=== PATIENT | female | born 1980 | race Caucasian/White ===

== ENCOUNTER → 2022-05-29 | Outpatient (CLI) | payer OTHER ==
[~2022-05-29] MED LIST: METF-372; PAROXETINE
[2022-05-29 13:12] LABS: Basophils # (auto) 0 10 ^3/uL (0-0.2); Basophils % (auto) 0.3 % (0.0-2.0); Eosinophils # (auto) 0.1 10 ^3/uL (0-0.8); Hemoglobin 12.9 g/dL (12.2-16.2); Lymphocytes % (auto) 21.4 % (10.0-50.0); Mean Corpuscular Hgb Conc. 33.9 g/dL (32.0-36.0); Mean Corpuscular Volume 82.6 fL (80.0-100.0); Monocytes # (auto) 0.4 10 ^3/uL (0-1.3); Monocytes % (auto) 4.5 % (0.0-12.0); Neutrophils # (auto) 6.8 10 ^3/uL (1.6-8.6); Neutrophils % (auto) 72.8 % (37.0-80.0); Nucleated Red Blood Cells % 0.1 %; Red Blood Cells 4.59 10^6/uL (4.0-5.20); Red Cell Distribution Width 13.6 % (11.8-14.3); White Blood Cell 9.3 10^3/uL (4.4-10.8)
[2022-05-29 13:40] LABS: Alcohol, Urine < 3.0 mg/dL (0-10); Amphetamine Screen, Urine NEGATIVE (NEGATIVE); Barbiturate Scree,Urine NEGATIVE (NEGATIVE); Benzodiazephine Screen, Urine NEGATIVE (NEGATIVE); Cannabinoid Screen, Urine NEGATIVE (NEGATIVE); Cocaine Screen, Urine NEGATIVE (NEGATIVE); Opiate Scree,Urine NEGATIVE (NEGATIVE); Phencyclidine Screen, Urine NEGATIVE (NEGATIVE)
[2022-05-30 07:06] LABS: RPR Non Reactive (Non Reactive); Rubella Antibodies, IgG 1.72 index (Immune >0.99)
== END | disposition home or self-care (01) ==
LOC: LAB 12:27
PROVIDERS: ATTEND Obstetrics & Gynecology Obstetrics
DX: Z34.80 Encounter for supervision of other normal pregnancy, unspecified trimester (principal); N39.0 Urinary tract infection, site not specified; Z31.430 Encounter of female for testing for genetic disease carrier status for procreative management; Z36.0 Encounter for antenatal screening for chromosomal anomalies; Z3A.00 Weeks of gestation of pregnancy not specified
CPT/HCPCS: 36415; 80307; 83036; 84112; 84702; 85025; 86592; 86703; 86762; 86850; 86900; 86901; 87086; 87340

== ENCOUNTER 2024-01-03 14:52 | Emergency (ER) | payer MEDICAID, OTHER ==
[~2024-01-03] VITALS: Ht 167.6 cm; Wt 120.5 kg
[2024-01-03 16:55] VITALS: BP 120/40; PULSE 92; RESP 16; TEMP 98.3; O2SAT 95
[2024-01-03] MEDS: KETOROLAC TROMETH 60MG/2ML VIAL IM ONE (17:10)
[2024-01-03] MEDS ORDERED: IBUP-1456 PO (17:20)
[2024-01-03] MEDS ORDERED: METH-1182 PO (17:20)
== END 2024-01-03 17:36 | disposition home or self-care (01) ==
LOC: ER 14:52
DX: S16.1XXA Strain of muscle, fascia and tendon at neck level, initial encounter (principal); R51.9 Headache, unspecified; E11.9 Type 2 diabetes mellitus without complications; Z88.0 Allergy status to penicillin; X50.1XXA Overexertion from prolonged static or awkward postures, initial encounter; Y93.89 Activity, other specified; Y92.89 Other specified places as the place of occurrence of the external cause; Y99.8 Other external cause status
CPT/HCPCS: 70450; 96372; 99285; J1885

== ENCOUNTER 2024-06-16 16:34 | Inpatient (IN) | payer MEDICAID ==
[~2024-06-16] VITALS: Ht 167.6 cm; Wt 115.9 kg
[~2024-06-16 16:34] MED LIST changes: +IBUP-1456 PO; +METH-1182 PO
--- NOTE | 2024-06-16 18:39 | DVH ---
Left lower extremity venous duplex Clinical History: SWELLING AND PAIN Comparison: None Technique: Duplex Doppler evaluation of the deep venous system of the left lower extremity from the common femor al vein to the popliteal vein including color Doppler and spectral/pulsed waveform analysis was perfo rmed. Findings: Duplex Doppler evaluation of the deep venous system of the left lower extremity from the common femor al vein to the popliteal vein including color Doppler and spectral/pulsed waveform analysis was perfo rmed. The common femoral vein demonstrates appropriate compressibility and waveform variability. There is compressibility/patency of the great saphenous vein at the proximal thigh. The femoral vein demonstrates appropriate compressibility and waveform variability. The deep femoral vein demonstrates appropriate compressibility and waveform variability. The popliteal vein demonstrates appropriate compressibility and waveform variability. There is normal compressibility at the tibioperoneal trunk. Impression: No left femoropopliteal venous thrombosis. If clinical concern/symptoms persist or worsen, short-interval follow-up study is suggested.
[2024-06-16 19:12] LABS: Basophils # (auto) 0.1 10 ^3/uL (0-0.2); Basophils % (auto) 0.6 % (0.0-2.0); Eosinophils # (auto) 0.3 10 ^3/uL (0-0.8); Eosinophils % (auto) 1.9 % (0.0-7.0); Hematocrit 37.4 % (36.0-46.0); Hemoglobin 12.7 g/dL (12.2-16.2); Lymphocytes # (auto) 1.7 10 ^3/uL (0.4-5.4); Lymphocytes % (auto) 10.7 % (10.0-50.0); Mean Corpuscular Hemoglobin 28.4 pg (28.0-32.0); Mean Corpuscular Hgb Conc. 33.9 g/dL (32.0-36.0); Mean Corpuscular Volume 83.9 fL (80.0-100.0); Monocytes # (auto) 0.8 10 ^3/uL (0-1.3); Monocytes % (auto) 4.9 % (0.0-12.0); Neutrophils # (auto) 12.8 10 ^3/uL (1.6-8.6); Neutrophils % (auto) 81.9 % (37.0-80.0); Platelet Count (auto) 297 10^3/uL (140-450); Red Blood Cells 4.45 10^6/uL (4.0-5.20); Red Cell Distribution Width 13.3 % (11.8-14.3); White Blood Cell 15.6 10^3/uL (4.4-10.8)
[2024-06-16 19:26] LABS: Alanine Aminotransferase 25 U/L (7-40); Albumin 4.6 g/dL (3.2-4.8); Alkaline Phosphatase 94 U/L (46-116); Anion Gap 8 (5-15); BUN/Creatinine Ratio 8.5 (10.0-20.0); Bilirubin, Total 0.9 mg/dL (0.2-1.0); Calcium 10.1 mg/dL (8.7-10.4); Carbon Dioxide 28 mmol/L (20-31); Chloride 102 mmol/L (98-107); Sodium 138 mmol/L (136-145)
[2024-06-16 19:31] LABS: Aspartate Aminotransferase 11 U/L (13-40); Blood Urea Nitrogen 6 mg/dL (9-23); Glucose 241 mg/dL (74-106); Potassium 3.3 mmol/L (3.5-5.1)
[2024-06-16 19:49] LABS: Erythrocyte Sedimentation Rate 47 mm/hr (0-20)
--- NOTE | 2024-06-16 20:02 | ED.PDOC ---
Musculoskeletal HPI Comments radha HPI: Poor Historian. 44-year-old female presents to emergency department for evaluation of left calf ankle foot pain and swelling. Denies any fall or trauma. Patient is diabetic. She feels some swelling and some minimal redness in there and tenderness at the plantar aspect of the left foot. Patient is neurovascularly intact in the affected extremity. Denies any other associated symptoms. Vitals: temp: 98.8 F heart rate: 102 RR: 16 BP: 146/67 02 sat: 98 PAST MEDICAL HISTORY: diabetes past surgical history: denies medications: unknown allergies: Pediazole, penicillins REVIEW OF SYSTEMS: CONSTITUTIONAL: Denies acute: fever, diaphoresis, chills, generalized weakness. HEAD: Denies acute: headache, photophobia Eyes: Denies acute: Double vision, vision loss, eye pain, eye discharge. EARS: Denies acute: tinnitus, hearing loss, ear discharge, ear pain, THROAT: Denies acute: sore throat, swelling, difficulty swallowing , pain with swallowing, change in voice. NECK: Denies acute: neck pain, neck swelling, stiff neck. HEART: Denies acute : chest pain, palpitations, LUNGS: Denies acute: SOB, wheezing, cough, hemoptysis ABDOMEN: Denies acute: abdominal pain, Nausea, Vomiting, diarrhea, melena , hematemesis, hematochezia SKIN: Denies acute: rash, redness, lesions, itchiness. EXTREMITIES: Denies acute: calf pain, numbness, tingling, weakness Denies acute: Low back pain. Neuro: Denies acute: focal neurological deficit, motor or sensory focal neurological deficit, tremors, seizure like activity, confusion, dizziness, change in mental status, loss of bowel or bladder function, cauda equina like symptoms. : Denies acute: dysuria, hematuria, flank pain, increase in urinary frequency. PSYCH: Denies acute: hallucination, suicidal ideation, homicidal ideation. FEMALE: Denies acute: abnormal vaginal bleeding, foul odor, unusual discharge. PHYSICAL EXAM: General: no acute distress, awake and alert. Head: normocephalic, atraumatic. Neck: supple, trachea is midline, no swelling. Throat: Normal phonation. Eyes:, no erythema, no purulent discharge, no proptosis, no icterus. Heart: regular rate, regular rhythm, no significant murmur appreciated. Lungs: no apparent respiratory distress, Able to speak in full sentences. No wheezing, no rhonchi, no crackles. No stridors Clear to auscultation bilaterally. Abdomen: non tender to palpation, non distended, soft, no guarding, no rebound, + bowel sounds. Obese Neuro: Awake, Alert, oriented to name, self, situation, follows commands GCS=15. Speech is normal. Skin: no petechia, no purpura, no cyanosis, non-pale, not jaundice. Left Lower extremities: -1/4- Pitting edema no deformity, no focal swelling, mild calf tenderness Noted erythema and puffiness of the left foot. No actual tenderness to palpation on the foot. Pedal pulses palpable. Patient is neurovascularly intact in the affected extremity. Makes eye contact. moves all four extremities. Face: no apparent facial droop. Chief Complaint: Lower Extremity Time Seen by MD: 19:57 Primary Care Provider: PALOMO Mcdonnell Notes: Medications, Allergies Allergies: Coded Allergies: Penicillins (Verified Allergy, 08/14/09) Uncoded Allergies: PEDIASOL (Allergy, 08/14/09) Home Meds Active Scripts Methocarbamol (Methocarbamol) 750 Mg Tab, 750 MG PO BID, #20 TAB Prov:ARIELLA ALEMAN 01/03/24 Ibuprofen (Ibuprofen) 800 Mg Tab, 1 TAB PO TID, #30 TAB Prov:ARIELLA ALEMAN 01/03/24 Reported Medications [Paroxetine] No Conflict Check 11/01/12 [Metformin [id number] Mg] (Metformin Hcl) 1000 MG TAB No Conflict Check, MG 11/01/12 Information Source: Patient Mode of Arrival: Wheelchair Past Medical History PAST MEDICAL HISTORY: DM Surgical History: Denies all surgeries [employer] History: No Pertinent [employer] History Family History Family History: No family hx of DM, No family hx of HTN Social History Smoker: Non-Smoker Alcohol: Denies ETOH Use Drugs: Denies Drug Use Lives In: Home Was a procedure done? Was a procedure done?: No X-Ray, Labs, Meds, VS Vital Signs Date Time Temp Pulse Resp B/P (MAP) Pulse Ox O2 Delivery O2 Flow Rate FiO2 06/16/24 17:00 98.8 102 16 146/67 (93) 98 Lab Test 06/16/24 18:56 06/16/24 17:36 Range/Units White Blood Count 15.6 H 4.4-10.8 10^3/uL Red Blood Count 4.45 4.0-5.20 10^6/uL Hemoglobin 12.7 12.2-16.2 g/dL Hematocrit 37.4 36.0-46.0 % Mean Corpuscular Volume 83.9 80.0-100.0 fL Mean Corpuscular Hemoglobin 28.4 28.0-32.0 pg Mean Corpuscular Hemoglobin Concent 33.9 32.0-36.0 g/dL Red Cell Distribution Width 13.3 11.8-14.3 % Platelet Count 297 140-450 10^3/uL Mean Platelet Volume 8.5 6.9-10.8 fL Neutrophils (%) (Auto) 81.9 H 37.0-80.0 % Lymphocytes (%) (Auto) 10.7 10.0-50.0 % Monocytes (%) (Auto) 4.9 0.0-12.0 % Eosinophils (%) (Auto) 1.9 0.0-7.0 % Basophils (%) (Auto) 0.6 0.0-2.0 % Neutrophils # (Auto) 12.8 H 1.6-8.6 10 ^3/uL Lymphocytes # (Auto) 1.7 0.4-5.4 10 ^3/uL Monocytes # (Auto) 0.8 0-1.3 10 ^3/uL Eosinophils # (Auto) 0.3 0-0.8 10 ^3/uL Basophils # (Auto) 0.1 0-0.2 10 ^3/uL Nucleated Red Blood Cells 0.0 % Erythrocyte Sedimentation Rate 47 H 0-20 mm/hr Sodium Level 138 136-145 mmol/L Potassium Level 3.3 L 3.5-5.1 mmol/L Chloride Level 102 98-107 mmol/L Carbon Dioxide Level 28 20-31 mmol/L Anion Gap 8 5-15 Blood Urea Nitrogen 6 L 9-23 mg/dL Creatinine 0.71 0.550-1.02 mg/dL Glomerular Filtration Rate Calc 106 >90 mL/min BUN/Creatinine Ratio 8.5 L 10.0-20.0 Serum Glucose 241 H 74-106 mg/dL Calcium Level 10.1 8.7-10.4 mg/dL Total Bilirubin 0.9 0.2-1.0 mg/dL Aspartate Amino Transferase (AST) 11 L 13-40 U/L Alanine Aminotransferase (ALT) 25 7-40 U/L Alkaline Phosphatase 94 46-116 U/L Total Protein 8.0 5.7-8.2 g/dL Albumin 4.6 3.2-4.8 g/dL POC Glucose 227 H 70-106 mg/dl [place] [id number] Ph: [phone] DIAGNOSTIC IMAGING Diagnostic Imaging Report : [id number] Signed PATIENT: BRYAN ANTHONY BACCT: [id number] UNIT: [id number] : 1980 LOC: ER ROOM / BED: / AGE / SEX: 44 / F ADM STATUS: REG ER SERVICE 173 ORDERING PHYSICIAN: DOMONIQUE WASHINGTON MD PROCEDURE(s): LLDVT - LT Lower DVT REASON: SWELLING AND PAIN ORDER NUMBER(s): [id number], ACCESSION NUMBER(s): [id number] Left lower extremity venous duplex Clinical History: SWELLING AND PAIN Comparison: None Technique: Duplex Doppler evaluation of the deep venous system of the left lower extremity from the common femoral vein to the popliteal vein including color Doppler and spectral/pulsed waveform analysis was performed. Findings: Duplex Doppler evaluation of the deep venous system of the left lower extremity from the common femoral vein to the popliteal vein including color Doppler and spectral/pulsed waveform analysis was performed. The common femoral vein demonstrates appropriate compressibility and waveform variability. There is compressibility/patency of the great saphenous vein at the proximal thigh. The femoral vein demonstrates appropriate compressibility and waveform v ariability. The deep femoral vein demonstrates appropriate compressibility and waveform variability. The popliteal vein demonstrates appropriate compressibility and waveform variability. There is normal compressibility at the tibioperoneal trunk. Impression: No left femoropopliteal venous thrombosis. If clinical concern/symptoms persist or worsen, short-interval follow-up study is suggested. ATED BY: ANNELIESE MCCLELLAN DO DICTATED DATE/TIME: 06/16/241835 SIGNED BY: ANNELIESE MCCLELLAN DO SIGNED DATE/TIME: 06/16/241835 CC: Patient Education/Counseling: Diagnosis, Treatment Family Education/Counseling: No Family Present Comments MDM: Patient presented with the above HPI.----- LLE pain -workup was initiated. patient was found with the above mentioned diagnosis. The following tests / medications were ordered: LT lower DVT, CBC, CMP, ESR, clindamycin, blood culture Patient ED course and VS have been stabilized. Patient has been reassessed in the ED and remained in a stable condition. Patient has been observed in the ED adequate length of time to insure improvement/stability. Escalation of care considered: Consideration of escalation to observation or admission. patient was ADMITTED to the medicine team for further evaluation and treatment of their presentation. All the reports of any imaging studies that were ordered by myself were reviewed by myself. Departure 1 Departure Time of Disposition: 21:04 Impression: Primary Impression: Left leg cellulitis Disposition: ADMITTED INPATIENT Admit to: [facility] Condition: Guarded Discharged With: Self Critical Care Note Critical Care Time?: No I personally scribed for DIPTI LINTON DO ([email or web address]) on 06/16/24 at 20:01. Electronically submitted by Sweta Pastrana ([email or web address]). I personally scribed for DIPTI LINTON DO ([email or web address]) on 06/16/24 at 20:28. Electronically submitted by Sweta Pastrana ([email or web address]). I personally scribed for DIPTI LINTON DO ([email or web address]) on 06/16/24 at 21:40. Electronically submitted by Sweta SOLORZANOGlider). DIPTI LINTON DO Jun 16, 2024 20:01
[2024-06-16] MEDS ORDERED: NITROGLYCERIN 0.4 MG SL TAB SL PRN (21:45)
[2024-06-16] MEDS ORDERED: MORPHINE SULFATE INJ 2 MG/ml SYRG IV PRN (21:45)
--- NOTE | 2024-06-16 21:54 | DVH ---
EXAMINATIONS: 2 views of the left foot CLINICAL HISTORY: ankle swelling and /osteomyelitis COMPARISON: None Findings and impression: Oblique view not provided. As visualized, no grossly displaced fractures, dislocations or bony destructive changes are evident o n the provided views. Distal tibial rené and interlocking screw fixation partially imaged. If there is persistent concern for osteomyelitis, MRI may be considered to further evaluate.
[2024-06-16] MEDS: CLINDAMYCIN 300MG IV 50 ML IV SCH (22:00)
[2024-06-17] MEDS: POTASSIUM CHL 20 Meq TABLET PO ONE (01:32)
[2024-06-17] MEDS: FAMOTIDINE 20 MG TAB PO ONE (01:32)
[2024-06-17] MEDS: ENOXAPARIN SOD 40 MG/0.4 ML SYRINGE SC ONE (01:32)
[2024-06-17] MEDS: CLINDAMYCIN 900MG IV 50 ML IV ONE (01:46)
[2024-06-17 05:02] VITALS: BP 149/65; PULSE 95; RESP 18; TEMP 98.3; O2SAT 96
[2024-06-17] MEDS ORDERED: DEXTROSE (50%) 50ML SYRG IV PRN (05:45)
--- NOTE | 2024-06-17 05:53 | DVHHPRES ---
History of Present Illness Resident Creating Document: ELIZABET MIRAMONTES RESIDENT History of Present Illness Patient is a 44-year-old female with past medical history of diabetes who came to the hospital with a chief complaint of left lower extremity worsening redness and pain. As per patient she started having redness in left lower extremity mild swelling prompted visit to emergency department. Patient has been feeling chills past past few days and mild cough however patient denied any other complaints including chest pain, shortness of breath, abdominal pain, dysuria, any other symptoms. At the time of evaluation, patient denied any other symptoms, lower extremity vascular is intake given prominent pedal pulse present in bilateral lower feet, ultrasound ruled out bilateral DVT as well. Patient will be admitted to hospital for the treatment of lower extremity cellulitis. Past Medical History Diabetes mellitus type 2 Past Surgical History Left knee surgery Family History: None Smoke: No ALCOHOL: none Drugs: None Lives: with Family Review of Systems Review of Systems Complaining of mild chills, left lower extremity swelling and redness. Constitutional: No: Fever, Chills, Sweats, Weakness, Malaise, Other Eyes: No: Pain, Vision change, Conjunctivae inflammation, Eyelid inflammation, Other, Redness ENT: No: Ear pain, Ear discharge, Nose pain, Nose discharge, Nose congestion, Mouth pain, Mouth swelling, Throat pain, Throat swelling, Other Respiratory: No: Cough, Dry, Shortness of breath, SOB with excertion, Wheezing, Hemoptysis, Pleuritic Pain, Sputum, Wheezing, Other Cardiovascular: No: Chest Pain, Palpitations, Orthopnea, Paroxysmal Noc. Dyspnea, Edema, Lt Headedness, Other Gastrointestinal: No: Nausea, Vomiting, Abdominal Pain, Diarrhea, Constipation, Melena, Hematochezia, Other Genitourinary: No Dysuria, No Frequency, No Incontinence, No Hematuria, No Retention, No Other Musculoskeletal: No: other, neck pain, shoulder pain, arm pain, back pain, hand pain, leg pain, foot pain Skin: No: Rash, Lesions, Jaundice, Bruising, Other Neurological: No: Weakness, Numbness, Incoordination, Change in speech, Confusion, Seizures, Other Allergies: Coded Allergies: Penicillins (Verified Allergy, 08/14/09) Uncoded Allergies: PEDIASOL (Allergy, 08/14/09) Medications Current Medications Medications Dose Ordered Sig/Jerome Route Start Time Stop Time Status Last Admin Dose Admin Nitroglycerin 0.4 mg Q5MINP PRN SL 06/16/24 21:45 Morphine Sulfate 2 mg Q30M PRN IV 06/16/24 21:45 Clindamycin Phosphate 50 ml @ 50 mls/hr Q8HR IV 06/16/24 22:00 Famotidine 20 mg Q12HR PO 06/17/24 10:00 Enoxaparin Sodium 40 mg DAILY@0100 SC 06/18/24 01:00 Exam Vital Signs Vital Signs Date Time Temp Pulse Resp B/P (MAP) Pulse Ox O2 Delivery O2 Flow Rate FiO2 06/17/24 05:02 95 18 96 Room Air* 0 21 06/17/24 05:02 98.3 149/65 (93) 98.3 General Appearance: Alert, Oriented X3 HEENT: Atraumatic, PERRLA, EOMI Respiratory: Clear to auscultation, Normal air movement Cardiovascular: Regular rate, Normal S1, Normal S2 Abdominal: Normal bowel sounds, Soft, No tenderness Extremities: No clubbing, No cyanosis, No edema, Normal pulses, Other (Mild redness over plantar surface of left foot, lateral surface of left foot as well) Skin: No rashes, No breakdown Neuro: Normal gait, Normal speech, Strength at 5/5 X4 ext, Normal tone Psych/Mental Status: Mental status NL, Mood NL Labs/Xrays Labs Test 06/16/24 18:56 06/16/24 17:36 Range/Units White Blood Count 15.6 H 4.4-10.8 10^3/uL Red Blood Count 4.45 4.0-5.20 10^6/uL Hemoglobin 12.7 12.2-16.2 g/dL Hematocrit 37.4 36.0-46.0 % Mean Corpuscular Volume 83.9 80.0-100.0 fL Mean Corpuscular Hemoglobin 28.4 28.0-32.0 pg Mean Corpuscular Hemoglobin Concent 33.9 32.0-36.0 g/dL Red Cell Distribution Width 13.3 11.8-14.3 % Platelet Count 297 140-450 10^3/uL Mean Platelet Volume 8.5 6.9-10.8 fL Neutrophils (%) (Auto) 81.9 H 37.0-80.0 % Lymphocytes (%) (Auto) 10.7 10.0-50.0 % Monocytes (%) (Auto) 4.9 0.0-12.0 % Eosinophils (%) (Auto) 1.9 0.0-7.0 % Basophils (%) (Auto) 0.6 0.0-2.0 % Neutrophils # (Auto) 12.8 H 1.6-8.6 10 ^3/uL Lymphocytes # (Auto) 1.7 0.4-5.4 10 ^3/uL Monocytes # (Auto) 0.8 0-1.3 10 ^3/uL Eosinophils # (Auto) 0.3 0-0.8 10 ^3/uL Basophils # (Auto) 0.1 0-0.2 10 ^3/uL Nucleated Red Blood Cells 0.0 % Erythrocyte Sedimentation Rate 47 H 0-20 mm/hr Sodium Level 138 136-145 mmol/L Potassium Level 3.3 L 3.5-5.1 mmol/L Chloride Level 102 98-107 mmol/L Carbon Dioxide Level 28 20-31 mmol/L Anion Gap 8 5-15 Blood Urea Nitrogen 6 L 9-23 mg/dL Creatinine 0.71 0.550-1.02 mg/dL Glomerular Filtration Rate Calc 106 >90 mL/min BUN/Creatinine Ratio 8.5 L 10.0-20.0 Serum Glucose 241 H 74-106 mg/dL Hemoglobin A1c 10.6 H <5.7 % A1C Calcium Level 10.1 8.7-10.4 mg/dL Total Bilirubin 0.9 0.2-1.0 mg/dL Aspartate Amino Transferase (AST) 11 L 13-40 U/L Alanine Aminotransferase (ALT) 25 7-40 U/L Alkaline Phosphatase 94 46-116 U/L B-Type Natriuretic Peptide 33.10 0-100 pg/mL Total Protein 8.0 5.7-8.2 g/dL Albumin 4.6 3.2-4.8 g/dL Thyroid Stimulating Hormone (TSH) 0.72 0.55-4.78 uIU/mL Beta HCG, Quantitative 3.7 1.5-4.2 mIU/mL POC Glucose 227 H 70-106 mg/dl Assessment/Plan Assessment/Plan Left lower extremity cellulitis Diabetes mellitus type 2 Morbid obesity History of knee surgery Plan/recommendation -IV antibiotic with clindamycin for cellulitis -prominent presence of bilateral pedal pulse, ruled out bilateral lower extremity DVT -x-ray of foot did not show any signs of osteomyelitis less likely given contain cellulitis, no signs of abscess visibly present. -insulin sliding scale for diabetes mellitus, diabetic education, currently on Ozempic, not on any other antidiabetic medication -PUD prophylaxis with famotidine -DVT prophylaxis with Lovenox Goals of care, discussed greater than 24 minutes. Full code status. Plan discussed with Dr. Zepeda Plan discussed with: Patient, Daughter (RN) My Orders Orders - ELIZABET MIRAMONTES Procedure Category Date Status Time Admit ADMIT 06/16/24 Transmitted 21:32 Nitroglycerin PHA 06/16/24 In Process Sublingual (Ntrostat 21:45 Morphine Sulfate PHA 06/16/24 In Process Injection 21:45 Stat Ekg For Chest SIMÓN 06/16/24 In Process Pain 21:32 L Foot 2 View Xray XY 06/16/24 Resulted 21:37 Clindamycin 300mg Iv PHA 06/16/24 In Process (Cleocin Iv) 22:00 Drug Screen LAB 06/16/24 Logged 21:38 Urinalysis LAB 06/16/24 Logged 21:38 Famotidine Tablet PHA 06/17/24 In Process (Pepcid Tablet) 10:00 Enoxaparin Sodium PHA 06/18/24 In Process (Lovenox) 01:00 Date of Service: Jun 16, 2024 Billing Provider: SUZANNA ZEPEDA MD Common Visit Codes: 26435-[id number] INP/OBS CARE (HIGH) ELIZABET MIRAMONTES Jun 17, 2024 05:53 SUZANNA ZEPEDA MD Jun 17, 2024 17:48
[2024-06-17] MEDS: ACCU-CHEK COMFORT CURVE STRIP VI SCH (06:23)
[2024-06-17] MEDS: InsuLIN REG 1unit/0.01ml Soln (100units/ml) SC SCH (06:28)
[2024-06-17 07:28] LABS: Urine Bacteria None Seen /hpf (None Seen)
[2024-06-17 08:00] LABS: Urine Blood Negative /uL (Negative); Urine Clarity Clear (Clear); Urine Color Light-Yellow (Yellow); Urine Protein, UAD Negative (Negative); Urine Specific Gravity 1.008 (1.001-1.035); Urine Squamous Epithelial Cell FEW /hpf (<5); Urine Urobilinogen Normal (Negative); Urine WBC 1 /hpf (0 - 5); Urine pH 6.5 (5.0-9.0)
[2024-06-17 08:12] LABS: Amphetamine Screen, Urine Neg (NEGATIVE); Barbiturate Scree,Urine Neg (NEGATIVE); Benzodiazephine Screen, Urine Neg (NEGATIVE); Cocaine Screen, Urine Neg (NEGATIVE); Opiate Scree,Urine Neg (NEGATIVE); Phencyclidine Screen, Urine Neg (NEGATIVE)
[2024-06-17 08:13] LABS: Cannabinoid Screen, Urine Neg (NEGATIVE)
[2024-06-17] MEDS: FAMOTIDINE 20 MG TAB PO SCH (10:09)
[2024-06-17] MEDS ORDERED: AUG875T PO (11:46)
--- NOTE | 2024-06-17 12:01 | DVHDSRES ---
Discharge Summary Date of Admission Resident Creating Document: ELIZABET MIRAMONTES RESIDENT Jun 16, 2024 at 21:32 Date of Discharge: Jun 17, 2024 Admitting Diagnosis Left foot cellulitis Labs/Diagnostic Data: Laboratory Results Test 06/17/24 11:06 06/17/24 07:00 06/16/24 18:56 POC Glucose 196 mg/dl (70-106) Urine Color Light-yellow (Yellow) Urine Clarity Clear (Clear) Urine pH 6.5 (5.0-9.0) Urine Specific [place] 1.008 (1.001-1.035) Urine Protein Negative (Negative) Urine Ketones Negative (Negative) Urine Blood Negative /uL (Negative) Urine Nitrite Negative (Negative) Urine Bilirubin Negative (Negative) Urine Urobilinogen Normal mg/dL (Negative) Urine Leukocyte Esterase Negative /uL (Negative) Urine RBC None seen /hpf (0 - 4) Urine WBC 1 /hpf (0 - 5) Urine Squamous Epithelial Cells Few /hpf (<5) Urine Bacteria None seen /hpf (None Seen) Urine Glucose 4+ mg/dL (Normal) Urine Opiates Screen Neg (NEGATIVE) Urine Fentanyl Screen Neg (NEGATIVE) Urine Barbiturates Screen Neg (NEGATIVE) Urine Phencyclidine Screen Neg (NEGATIVE) Urine Amphetamines Screen Neg (NEGATIVE) Urine Benzodiazepines Screen Neg (NEGATIVE) Urine Cocaine Screen Neg (NEGATIVE) Urine Cannabinoids Screen Neg (NEGATIVE) White Blood Count 15.6 10^3/uL (4.4-10.8) Red Blood Count 4.45 10^6/uL (4.0-5.20) Hemoglobin 12.7 g/dL (12.2-16.2) Hematocrit 37.4 % (36.0-46.0) Mean Corpuscular Volume 83.9 fL (80.0-100.0) Mean Corpuscular Hemoglobin 28.4 pg (28.0-32.0) Mean Corpuscular Hemoglobin Concent 33.9 g/dL (32.0-36.0) Red Cell Distribution Width 13.3 % (11.8-14.3) Platelet Count 297 10^3/uL (140-450) Mean Platelet Volume 8.5 fL (6.9-10.8) Neutrophils (%) (Auto) 81.9 % (37.0-80.0) Lymphocytes (%) (Auto) 10.7 % (10.0-50.0) Monocytes (%) (Auto) 4.9 % (0.0-12.0) Eosinophils (%) (Auto) 1.9 % (0.0-7.0) Basophils (%) (Auto) 0.6 % (0.0-2.0) Neutrophils # (Auto) 12.8 10 ^3/uL (1.6-8.6) Lymphocytes # (Auto) 1.7 10 ^3/uL (0.4-5.4) Monocytes # (Auto) 0.8 10 ^3/uL (0-1.3) Eosinophils # (Auto) 0.3 10 ^3/uL (0-0.8) Basophils # (Auto) 0.1 10 ^3/uL (0-0.2) Nucleated Red Blood Cells 0.0 % Erythrocyte Sedimentation Rate 47 mm/hr (0-20) Sodium Level 138 mmol/L (136-145) Potassium Level 3.3 mmol/L (3.5-5.1) Chloride Level 102 mmol/L (98-107) Carbon Dioxide Level 28 mmol/L (20-31) Anion Gap 8 (5-15) Blood Urea Nitrogen 6 mg/dL (9-23) Creatinine 0.71 mg/dL (0.550-1.02) Glomerular Filtration Rate Calc 106 mL/min (>90) BUN/Creatinine Ratio 8.5 (10.0-20.0) Serum Glucose 241 mg/dL (74-106) Hemoglobin A1c 10.6 % A1C (<5.7) Calcium Level 10.1 mg/dL (8.7-10.4) Total Bilirubin 0.9 mg/dL (0.2-1.0) Aspartate Amino Transferase (AST) 11 U/L (13-40) Alanine Aminotransferase (ALT) 25 U/L (7-40) Alkaline Phosphatase 94 U/L (46-116) B-Type Natriuretic Peptide 33.10 pg/mL (0-100) Total Protein 8.0 g/dL (5.7-8.2) Albumin 4.6 g/dL (3.2-4.8) Thyroid Stimulating Hormone (TSH) 0.72 uIU/mL (0.55-4.78) Beta HCG, Quantitative 3.7 mIU/mL (1.5-4.2) Other Laboratory Tests 06/16/24 18:56 Brief Hx & Hospital Course: A 44-year-old female with a history of diabetes presented to the hospital with worsening redness and pain in her left lower extremity. She reported mild swelling and chills over the past few days, along with a mild cough, but denied other symptoms such as chest pain, shortness of breath, abdominal pain, or dysuria. During evaluation, she denied additional symptoms, and vascular assessment showed intact lower extremity circulation with prominent pedal pulses bilaterally. An ultrasound ruled out bilateral DVT. She will be admitted for the treatment of lower extremity cellulitis. Her past medical history includes type 2 diabetes, and her surgical history includes left knee surgery. Hospital course: On physical exam, left foot was swollen and red from 3 lateral toes up to the ankle, per patient, the redness and swelling has increased 3 times within last 24 hours which was associated with severe pain and was limiting his ambulation. Chest x-ray showed, no grossly displaced fractures, dislocations or bony destructive changes are evident. DVT was ruled out with a Doppler ultrasound of lower limb. The patient was given empiric antibiotic of injection clindamyci. Hb A1c was found at 10.6, during hospitalization glucose was controlled with the aggressive insulin sliding scale. The patient was consulted regarding optimal glucose control and outpatient basis follow up. On 06/17, the patient was feeling better since admission, swelling and redness had decreased, patient was clinically and hemodynamically stable, on left leg examination, there was no fluctuation or pus discharge. discharge plan discussed with the patient and the patient was discharged. Discharge plan: Follow up with the PCP within 1 week of the discharge. follow up with the discharge Clinic within 1 week after discharge. Tablet Augmentin b.i.d. for 10 days. Continue home medicine. Operations or Procedures [place] [address] Ph: [phone] DIAGNOSTIC IMAGING Diagnostic Imaging Report : [id number] Signed PATIENT: BRYAN ANTHONY BACCT: [id number] UNIT: [id number] : 1980 LOC: OVERFLOW ROOM / BED: [address] [place] [address] / AGE / SEX: 44 / F ADM STATUS: ADM IN SERVICE 8439 ORDERING PHYSICIAN: ELIZABET MIRAMONTES RESIDENT PROCEDURE(s): LFOT2 - L FOOT 2 VIEW XRAY REASON: ankle swelling and /osteomyelitis ORDER NUMBER(s): [id number], ACCESSION NUMBER(s): [id number] EXAMINATIONS: 2 views of the left foot CLINICAL HISTORY: ankle swelling and /osteomyelitis COMPARISON: None Findings and impression: Oblique view not provided. As visualized, no grossly displaced fractures, dislocations or bony destructive changes are evident on the provided views. Distal tibial rené and interlocking screw fixation partially imaged. If there is persistent concern for osteomyelitis, MRI may be considered to further evaluate. ATED BY: LEO ROTHMAN MD DICTATED DATE/TIME: 06/16/242150 SIGNED BY: LEO ROTHMAN MD SIGNED DATE/TIME: 06/16/242150 CC: [place] [address] Ph: [phone] DIAGNOSTIC IMAGING Diagnostic Imaging Report : [id number] Signed PATIENT: BRYAN ANTHONY BACCT: [id number] UNIT: [id number] : 1980 LOC: ER ROOM / BED: / AGE / SEX: 44 / F ADM STATUS: REG ER SERVICE 36 ORDERING PHYSICIAN: DOMONIQUE WASHINGTON MD PROCEDURE(s): LLDVT - LT Lower DVT REASON: SWELLING AND PAIN ORDER NUMBER(s): [id number], ACCESSION NUMBER(s): [id number] Left lower extremity venous duplex Clinical History: SWELLING AND PAIN Comparison: None Technique: Duplex Doppler evaluation of the deep venous system of the left lower extremity from the common femoral vein to the popliteal vein including color Doppler and spectral/pulsed waveform analysis was performed. Findings: Duplex Doppler evaluation of the deep venous system of the left lower extremity from the common femoral vein to the popliteal vein including color Doppler and spectral/pulsed waveform analysis was performed. The common femoral vein demonstrates appropriate compressibility and waveform variability. There is compressibility/patency of the great saphenous vein at the proximal thigh. The femoral vein demonstrates appropriate compressibility and waveform variability. The deep femoral vein demonstrates appropriate compressibility and waveform variability. The popliteal vein demonstrates appropriate compressibility and waveform variability. There is normal compressibility at the tibioperoneal trunk. Impression: No left femoropopliteal venous thrombosis. If clinical concern/symptoms persist or worsen, short-interval follow-up study is suggested. ATED BY: ANNELIESE MCCLELLAN DO DICTATED DATE/TIME: 06/16/241835 SIGNED BY: ANNELIESE MCCLELLAN DO SIGNED DATE/TIME: 06/16/241835 CC: Condition at Discharge: Good Final Diagnosis/Problems List Left lower extremity cellulitis Diabetes mellitus type 2 Morbid obesity History of knee surgery Discharge Disposition: Home Discharge Instruct/Medications Diet: Consistent carbohydrate Activity: No Restrictions, As Tolerated Follow Up/Referral: Follow up with the PCP within 1 week after discharge. Follow up with the discharge Clinic within 1 week of the discharge Medications: The Augmentin b.i.d. for 10 days Continue home meds Discharge Statement: "Patient was advised to return to the ER or call 911 if any headaches, dizziness, shortness of breath, chest pain, abdominal pain, bleeding, fevers, or worsening of medical condition. Patient was counseled about treatment plan, medications, possible side effects, patientverbalized understanding. All questions were answered to the best of my ability. This discharge took greater then 30 minutes in planning, reviewing documentation, counseling the patient, and discussing with other team members." ASSESSMENT ASSESSMENT Assessment left leg cellulitis Date of Service: Jun 17, 2024 Billing Provider: OLIVA BONDS MD Common Visit Codes: 05607-AAY/OBS DISCH DAY >30min EPI HARVEY RESDIENT Jun 17, 2024 12:01 OLIVA BONDS MD Jun 21, 2024 21:42
[2024-06-17 12:22] VITALS: TEMP 36.8
[2024-06-17] MEDS ORDERED: DOX100T PO (13:04)
[2024-06-17] MEDS ORDERED: InsuLIN REG 1unit/0.01ml Soln (100units/ml) SC SCH (22:00)
[2024-06-18] MEDS ORDERED: ENOXAPARIN SOD 40 MG/0.4 ML SYRINGE SC SCH (01:00)
== END 2024-06-17 13:35 | disposition home or self-care (01) | DRG 383 ==
LOC: ER 16:34 → OVERFLOW 21:32
PROVIDERS: ADMIT Student in an Organized Health Care Education/Training Program; ATTEND Student in an Organized Health Care Education/Training Program
DX: L03.116 Cellulitis of left lower limb (principal); E11.9 Type 2 diabetes mellitus without complications; E66.01 Morbid (severe) obesity due to excess calories; Z88.0 Allergy status to penicillin; Z68.41 Body mass index [BMI] 40.0-44.9, adult
CPT/HCPCS: 36415; 73620; 80053; 80307; 81001; 82962; 83036; 83880; 84443; 84702; 85025; 85652; 87040; 93971; G0378; J1815; J3490

== ENCOUNTER 2024-06-26 00:26 | Inpatient (IN) | payer MEDICAID ==
[~2024-06-26] VITALS: Ht 167.6 cm; Wt 110.3 kg
[~2024-06-26 00:26] MED LIST changes: +DOX100T PO
[2024-06-26] MEDS ORDERED: VANCOMYCIN PER PHARMACY 0 MG IV SCH ×2 (01:00→02:15)
[2024-06-26 01:33] LABS: Basophils # (auto) 0.1 10 ^3/uL (0-0.2); Eosinophils # (auto) 0.4 10 ^3/uL (0-0.8); Hemoglobin 11.5 g/dL (12.2-16.2); Lymphocytes # (auto) 1.4 10 ^3/uL (0.4-5.4); Mean Corpuscular Hemoglobin 28.1 pg (28.0-32.0); Mean Corpuscular Hgb Conc. 33.4 g/dL (32.0-36.0)
[2024-06-26 01:35] LABS: Basophils % (auto) 0.7 % (0.0-2.0); Hematocrit 34.6 % (36.0-46.0); Lymphocytes % (auto) 7.6 % (10.0-50.0); Mean Corpuscular Volume 84.1 fL (80.0-100.0); Monocytes % (auto) 5.2 % (0.0-12.0); Neutrophils % (auto) 84.5 % (37.0-80.0); Platelet Count (auto) 465 10^3/uL (140-450); Red Blood Cells 4.11 10^6/uL (4.0-5.20); Red Cell Distribution Width 13.5 % (11.8-14.3); White Blood Cell 18.9 10^3/uL (4.4-10.8)
--- NOTE | 2024-06-26 01:40 | DVH ---
INDICATION: Rule out osteomyelitis COMPARISON: None TECHNIQUE: CT of the left foot was performed without contrast. Volume transverse images were obtained and reconstructed in multiple planes using bone and soft tissue algorithms. Radiation Dose Information: CT Dose: CTDI volume is 7.8 mGy. Dose-length product is 186 mGy*cm FINDINGS: The alignment is normal. The joint spaces are normal. There is no fracture, dislocation or aggressive osseous lesion. No osseous destructive changes. Extensive fat stranding and phlegmon is seen throughout the superficial left foot suggestive of cellu litis. No drainable abscess identified. IMPRESSION: 1. Extensive fat stranding and phlegmon is seen throughout the superficial left foot suggestive of ce llulitis. No drainable abscess identified. No osseous destructive changes. 2. All CT scans at this medical facility are performed using dose modulation techniques as appropriat e to a performed exam including the following: Automated exposure control was utilized; adjustment of the MA and/or KV according to patient size; and use of iterative reconstruction technique.
[2024-06-26 01:53] LABS: Alanine Aminotransferase 15 U/L (7-40); Albumin 4.2 g/dL (3.2-4.8); Anion Gap 8 (5-15); BUN/Creatinine Ratio 11.9 (10.0-20.0); Bilirubin, Total 0.5 mg/dL (0.2-1.0); Blood Urea Nitrogen 10 mg/dL (9-23); Calcium 9.7 mg/dL (8.7-10.4); Carbon Dioxide 23 mmol/L (20-31); Chloride 99 mmol/L (98-107); Total Protein 8.1 g/dL (5.7-8.2)
[2024-06-26 02:09] LABS: Sodium 130 mmol/L (136-145)
[2024-06-26 02:10] LABS: Alkaline Phosphatase 118 U/L (46-116); Aspartate Aminotransferase < 8 U/L (13-40); Glucose 453 mg/dL (74-106)
--- NOTE | 2024-06-26 02:21 | ED.PDOC ---
Musculoskeletal HPI Comments This patient is a pleasant but morbidly obese and poorly controlled diabetic 44-year-old female who arrives the ED today for re-evaluation of left foot concerns. Patient was admitted into this facility prior for left foot cellulitis. Patient returns today with new complaints of redness and swelling that began a few days ago and has continued to worsen. Patient denies any fever nausea or vomiting. Vital signs were stable on arrival. Chief Complaint: Lower Extremity Time Seen by MD: 00:34 Primary Care Provider: PALOMO Mcdonnlel Notes: Nurses Notes Allergies: Coded Allergies: Penicillins (Verified Allergy, 08/14/09) Uncoded Allergies: PEDIASOL (Allergy, 08/14/09) Home Meds Active Scripts Doxycycline Monohydrate (Doxycycline Monohydrate) 100 Mg Tab, 100 MG PO BID for 10 Days, #20 TAB 0 Refills Prov:OLIVA BONDS MD 06/17/24 Methocarbamol (Methocarbamol) 750 Mg Tab, 750 MG PO BID, #20 TAB Prov:ARIELLA ALEMAN 01/03/24 Ibuprofen (Ibuprofen) 800 Mg Tab, 1 TAB PO TID, #30 TAB Prov:ARIELLA ALEMAN 01/03/24 Reported Medications [Paroxetine] No Conflict Check 11/01/12 [Metformin [id number] Mg] (Metformin Hcl) 1000 MG TAB No Conflict Check, MG 11/01/12 Information Source: Patient Mode of Arrival: Ambulatory Location: Left Extremity Location: Foot Timing: Days Prehospital treatment: None Severity: Moderate Able to Move Extremity: Yes Bear Weight: Limited Pain: Moderate Hand Dominance: Right Mechanism: Spontaneous Circumstances: Spontaneous Onset of Symptoms: Spontaneous Symptoms: Swelling, Pain DVT Risk Factors: NONE Past Medical History PAST MEDICAL HISTORY: DM Past Medical History (Other): Recent Left foot cellulitis Surgical History: Denies all surgeries SUPERINTENDENT TRANSMISSION History: No Pertinent SUPERINTENDENT TRANSMISSION History Family History Family History: No family hx of DM, No family hx of HTN Social History Smoker: Non-Smoker Alcohol: Denies ETOH Use Drugs: Denies Drug Use Lives In: Home Constitutional: denies: chills, diaphoresis, fatigue, fever, malaise, sweats, weakness, others EENTM: denies: blurred vision, double vision, ear bleeding, ear discharge, ear drainage, ear pain, ear ringing, eye pain, eye redness, hearing loss, mouth pain, mouth swelling, nasal discharge, nose bleeding, nose congestion, nose pain, photophobia, tearing, throat pain, throat swelling, voice changes, others Respiratory: denies: cough, hemoptysis, orthopnea, SOB at rest, shortness of breath, SOB with excertion, stridor, wheezing, others Cardiovascular: denies: chest pain, dizzy spells, diaphoresis, Dyspnea on exertion, edema, irregular heart beat, left arm pain, lightheadedness, palpitations, PND, syncope, others Gastrointestinal: denies: abdomen distended, abdominal pain, blood streaked bowels, constipated, diarrhea, dysphagia, difficulty swallowing, hematemesis, melena, nausea, poor appetite, poor fluid intake, rectal bleeding, rectal pain, vomiting, others Genitourinary: denies: abnormal vagina bleeding, burning, dyspareunia, dysuria, flank pain, frequency, hematuria, incontinence, pain, , vagina discharge, urgency, others Neurological: denies: dizziness, fainting, headache, left sided numbness, left sided weakness, numbness, paresthesia, pre-existing deficit, right sided numbnes s, right sided weakness, seizure, speech problems, tingling, tremors, weakness, others Musculoskeletal: reports: others (Left foot redness and swelling); denies: back pain, gout, joint pain, joint swelling, muscle pain, muscle stiffness, neck pain Integumetry: denies: bruises, change in color, change in hair/nails, dryness, laceration, lesions, lumps, rash, wounds, others Allergic/Immunocompromised: denies: Difficulty Healing, Frequent Infections, Hives, Itching, others Hematologic/Lymphatic: denies: anemia, blood clots, easy bleeding, easy bruising, swollen glands, others Endocrine: denies: excessive hunger, excessive sweating, excessive thirst, excessive urination, flushing, intolerance to cold, intolerance to heat, unexplained weight gain, unexplained weight loss, others Psychiatric: denies: anxiety, bipolar disorder, depression, hopeless, panic disorder, schizophrenia, sleepless, suicidal, others Physical Exam General Appearance: Moderate Distress ([id number] distress due to left foot concerns.), Obese HEENT: Normal ENT Inspection, Pharynx Normal, TMs Normal Neck: Full Range of Motion, Non-Tender, Normal, Normal Inspection Respiratory: Chest Non-Tender, Lungs Clear, No Accessory Muscle Use, No Respiratory Distress, Normal Breath Sounds Cardiovascular: No Edema, No JVD, No Murmur, No Gallop, Normal Peripheral Pulses, Regular Rate/Rhythm Breast Exam: Deferred Gastrointestinal: No Organomegaly, Non Tender, No Pulsatile Mass, Normal Bowel Sounds, Soft Genitalia: Deferred Pelvic: Deferred Rectal: Deferred Extremities: Other (Diffuse erythema and edema noted to lateral aspect of the left foot with a additional blistering noted to the pedal aspect of the forefoot. No lymphangitis.) Neurologic: Alert, No Motor Deficits, Normal Affect, Normal Mood, No Sensory Deficits Cerebellar Function: Normal Reflexes: Normal Skin: Dry, Normal Color, Warm Lymphatic: No Adenopathy Was a procedure done? Was a procedure done?: No Differential Diagnosis EXT Differential Diagnosis: Cellulitis, Other (Osteomyelitis, sepsis) X-Ray, Labs, Meds, VS Vital Signs Date Time Temp Pulse Resp B/P (MAP) Pulse Ox O2 Delivery O2 Flow Rate FiO2 06/26/24 00:50 100.0 107 18 135/55 (81) 97 Lab Test 06/26/24 01:22 Range/Units White Blood Count 18.9 H 4.4-10.8 10^3/uL Red Blood Count 4.11 4.0-5.20 10^6/uL Hemoglobin 11.5 L 12.2-16.2 g/dL Hematocrit 34.6 L 36.0-46.0 % Mean Corpuscular Volume 84.1 80.0-100.0 fL Mean Corpuscular Hemoglobin 28.1 28.0-32.0 pg Mean Corpuscular Hemoglobin Concent 33.4 32.0-36.0 g/dL Red Cell Distribution Width 13.5 11.8-14.3 % Platelet Count 465 H 140-450 10^3/uL Mean Platelet Volume 7.9 6.9-10.8 fL Neutrophils (%) (Auto) 84.5 H 37.0-80.0 % Lymphocytes (%) (Auto) 7.6 L 10.0-50.0 % Monocytes (%) (Auto) 5.2 0.0-12.0 % Eosinophils (%) (Auto) 2.0 0.0-7.0 % Basophils (%) (Auto) 0.7 0.0-2.0 % Neutrophils # (Auto) 16.0 H 1.6-8.6 10 ^3/uL Lymphocytes # (Auto) 1.4 0.4-5.4 10 ^3/uL Monocytes # (Auto) 1.0 0-1.3 10 ^3/uL Eosinophils # (Auto) 0.4 0-0.8 10 ^3/uL Basophils # (Auto) 0.1 0-0.2 10 ^3/uL Nucleated Red Blood Cells 0.0 % Sodium Level 130 L 136-145 mmol/L Potassium Level 4.0 3.5-5.1 mmol/L Chloride Level 99 98-107 mmol/L Carbon Dioxide Level 23 20-31 mmol/L Anion Gap 8 5-15 Blood Urea Nitrogen 10 9-23 mg/dL Creatinine 0.84 0.550-1.02 mg/dL Glomerular Filtration Rate Calc 87 >90 mL/min BUN/Creatinine Ratio 11.9 10.0-20.0 Serum Glucose 453 *H 74-106 mg/dL Lactic Acid Level 1.5 0.4-2.0 mmol/L Calcium Level 9.7 8.7-10.4 mg/dL Total Bilirubin 0.5 0.2-1.0 mg/dL Aspartate Amino Transferase (AST) < 8 L 13-40 U/L Alanine Aminotransferase (ALT) 15 7-40 U/L Alkaline Phosphatase 118 H 46-116 U/L Total Protein 8.1 5.7-8.2 g/dL Albumin 4.2 3.2-4.8 g/dL X-Ray, Labs, Meds, VS Comment All studies performed the ED were evaluated by me personally. Patient's laboratories revealed a leukocytosis with a white blood cell count of 18.9 in the mild left shift. Hyperglycemia with a blood sugar of 435 as well as mild hyponatremia. CT of the foot revealed a extensive foot cellulitis. Patient will be admitted for IV antibiotic management as well as blood sugar management should address her diabetic foot concerns. Time of 1ST Reevaluation: 02:20 Reevaluation 1ST: Improved Consultation: PCP Patient Education/Counseling: Diagnosis, Treatment Family Education/Counseling: Diagnosis, Treatment Departure 1 Departure Time of Disposition: 02:20 Impression: Primary Impression: Cellulitis of foot Additional Impressions: Hyperglycemia due to diabetes mellitus Hyponatremia Diabetic foot infection Disposition: ADMITTED INPATIENT Condition: Stable Discharged With: Self Critical Care Note Critical Care Time?: No Stability Stability form required: No Heart Score Heart Score: Heart Score Response (Comments) Value History N/A 0 EKG N/A 0 Age N/A 0 Risk Factors N/A 0 Troponin N/A 0 Total 0 BRENDA COLE PAC Jun 26, 2024 02:21
[2024-06-26] MEDS: SODIUM CHLORIDE 0.9% 1,000 ML IV ONE (04:15)
[2024-06-26] MEDS: VANCOMYCIN 1GM/250ML KIT 250 ML IV SCH (04:15)
[2024-06-26] MEDS: INSULIN LISPRO (HUMAN) 100 UNITS/ML ML SC ONE (04:17)
[2024-06-26] MEDS ORDERED: DEXTROSE (50%) 50ML SYRG IV PRN (06:00)
[2024-06-26] MEDS ORDERED: DOCUSATE SOD 100 MG CAP PO PRN (06:00)
[2024-06-26] MEDS ORDERED: MORPHINE SULFATE INJ 2 MG/ml SYRG IV PRN (06:00)
[2024-06-26] MEDS ORDERED: NITROGLYCERIN 0.4 MG SL TAB SL PRN (06:00)
[2024-06-26] MEDS ORDERED: ONDANSETRON HCL 4 MG/2 ML VIAL IV PRN (06:00)
[2024-06-26 06:02] VITALS: BP 128/62; PULSE 94; RESP 18; TEMP 98.2; O2SAT 99
--- NOTE | 2024-06-26 06:02 | DVHHP2 ---
History of Present Illness Reason for Visit: Cellulitis of left foot History of Present Illness The patient is a 44-year-old female with past medical history of diabetes mellitus and left foot cellulitis who presented to [facility] ED for evaluation of left foot cellulitis. The patient was recently admitted to this facility for left foot cellulitis, return new complaint redness and swelling. Patient was seen and evaluated in the ED, laboratory data shows WBC 18.9, platelets 465, sodium 130, potassium 4.0, BUN 10, creatinine 0.84, GFR 87, glucose 453. Left foot CT revealing extensive fat stranding and phlegmon is seen throughout the superficial left foot suggestive of cellulitis. Patient was started on antibiotic regimen vancomycin, please see medication orders section in the computer. On my assessment, patient denied chest pain, no headache, no dizziness, no shortness breath, no nausea, no vomiting, no fever, no chills. Patient was admitted for further evaluation and medical management. Past Medical History DM, Recent Left foot cellulitis Past Surgical History Denies all surgeries Family History Reviewed, noncontributory to the management of this case. Past Social History The patient lives at home, denies smoking, alcohol or illicit drugs abuse. Review of Systems Constitutional: No: Fever, Chills, Sweats, Weakness, Malaise, Other Eyes: No: Pain, Vision change, Conjunctivae inflammation, Eyelid inflammation, Other, Redness ENT: No: Ear pain, Ear discharge, Nose pain, Nose discharge, Nose congestion, Mouth pain, Mouth swelling, Throat pain, Throat swelling, Other Respiratory: No: Cough, Dry, Shortness of breath, SOB with excertion, Wheezing, Hemoptysis, Pleuritic Pain, Sputum, Wheezing, Other Cardiovascular: No: Chest Pain, Palpitations, Orthopnea, Paroxysmal Noc. Dyspnea, Edema, Lt Headedness, Other Gastrointestinal: No: Nausea, Vomiting, Abdominal Pain, Diarrhea, Constipation, Melena, Hematochezia, Other Genitourinary: No Dysuria, No Frequency, No Incontinence, No Hematuria, No Retention, No Other Musculoskeletal: other (Left foot redness and swelling); No: neck pain, shoulder pain, arm pain, back pain, hand pain, leg pain, foot pain Skin: No: Rash, Lesions, Jaundice, Bruising, Other Neurological: No: Weakness, Numbness, Incoordination, Change in speech, Confusion, Seizures, Other Allergies: Coded Allergies: Penicillins (Verified Allergy, 08/14/09) Uncoded Allergies: PEDIASOL (Allergy, 08/14/09) Medications Current Medications Medications Dose Ordered Sig/Jerome Route Start Time Stop Time Status Last Admin Dose Admin Vancomycin HCl 0 ml @ 0 mls/hr UD IV 06/26/24 01:00 UNV Vancomycin HCl 0 ml @ 0 mls/hr UD IV 06/26/24 02:15 UNV Exam Vital Signs Vital Signs Date Time Temp Pulse Resp B/P (MAP) Pulse Ox O2 Delivery O2 Flow Rate FiO2 06/26/24 04:17 Room Air* 0 21 06/26/24 04:08 99.2 97 16 107/55 (99) 97 99.2 General Appearance: Alert, Oriented X3, Cooperative, No acute distress HEENT: Atraumatic, PERRLA, EOMI, Mucous membr. moist/pink Respiratory: Clear to auscultation, Normal air movement Cardiovascular: Regular rate, Normal S1, Normal S2, No murmurs Abdominal: Normal bowel sounds, Soft, No tenderness, No hepatospenomegaly, No masses Extremities: No clubbing, No cyanosis, No edema, Normal pulses, No tenderness/swelling Skin: No rashes, No breakdown, No significant lesion Neuro: Normal gait, Normal speech, Strength at 5/5 X4 ext, Normal tone, Sensation intact, Cranial nerves 3-12 NL, Reflexes 2+ Psych/Mental Status: Mental status NL, Mood NL Labs/Xrays Labs Test 06/26/24 01:22 Range/Units White Blood Count 18.9 H 4.4-10.8 10^3/uL Red Blood Count 4.11 4.0-5.20 10^6/uL Hemoglobin 11.5 L 12.2-16.2 g/dL Hematocrit 34.6 L 36.0-46.0 % Mean Corpuscular Volume 84.1 80.0-100.0 fL Mean Corpuscular Hemoglobin 28.1 28.0-32.0 pg Mean Corpuscular Hemoglobin Concent 33.4 32.0-36.0 g/dL Red Cell Distribution Width 13.5 11.8-14.3 % Platelet Count 465 H 140-450 10^3/uL Mean Platelet Volume 7.9 6.9-10.8 fL Neutrophils (%) (Auto) 84.5 H 37.0-80.0 % Lymphocytes (%) (Auto) 7.6 L 10.0-50.0 % Monocytes (%) (Auto) 5.2 0.0-12.0 % Eosinophils (%) (Auto) 2.0 0.0-7.0 % Basophils (%) (Auto) 0.7 0.0-2.0 % Neutrophils # (Auto) 16.0 H 1.6-8.6 10 ^3/uL Lymphocytes # (Auto) 1.4 0.4-5.4 10 ^3/uL Monocytes # (Auto) 1.0 0-1.3 10 ^3/uL Eosinophils # (Auto) 0.4 0-0.8 10 ^3/uL Basophils # (Auto) 0.1 0-0.2 10 ^3/uL Nucleated Red Blood Cells 0.0 % Sodium Level 130 L 136-145 mmol/L Potassium Level 4.0 3.5-5.1 mmol/L Chloride Level 99 98-107 mmol/L Carbon Dioxide Level 23 20-31 mmol/L Anion Gap 8 5-15 Blood Urea Nitrogen 10 9-23 mg/dL Creatinine 0.84 0.550-1.02 mg/dL Glomerular Filtration Rate Calc 87 >90 mL/min BUN/Creatinine Ratio 11.9 10.0-20.0 Serum Glucose 453 *H 74-106 mg/dL Lactic Acid Level 1.5 0.4-2.0 mmol/L Calcium Level 9.7 8.7-10.4 mg/dL Total Bilirubin 0.5 0.2-1.0 mg/dL Aspartate Amino Transferase (AST) < 8 L 13-40 U/L Alanine Aminotransferase (ALT) 15 7-40 U/L Alkaline Phosphatase 118 H 46-116 U/L Total Protein 8.1 5.7-8.2 g/dL Albumin 4.2 3.2-4.8 g/dL PATIENT: BRYAN ANTHONY BACCT: [id number] UNIT: [id number] : 1980 LOC: ER ROOM / BED: / AGE / SEX: 44 / F ADM STATUS: REG ER SERVICE [id number] ORDERING PHYSICIAN: BRENDA COLE PAC PROCEDURE(s): LFTCT - CT L FOOT WO CONTRAST REASON: Rule out osteomyelitis ORDER NUMBER(s): [id number], ACCESSION NUMBER(s): [id number] INDICATION: Rule out osteomyelitis COMPARISON: None TECHNIQUE: CT of the left foot was performed without contrast. Volume transverse images were obtained and reconstructed in multiple planes using bone and soft tissue algorithms. Radiation Dose Information: CT Dose: CTDI volume is 7.8 mGy. Dose-length product is 186 mGy*cm FINDINGS: The alignment is normal. The joint spaces are normal. There is no fracture, dislocation or aggressive osseous lesion. No osseous destructive changes. Extensive fat stranding and phlegmon is seen throughout the superficial left foot suggestive of cellulitis. No drainable abscess identified. IMPRESSION: 1. Extensive fat stranding and phlegmon is seen throughout the superficial left foot suggestive of cellulitis. No drainable abscess identified. No osseous destructive changes. Assessment/Plan Assessment/Plan Cellulitis of left foot Hyponatremia Leukocytosis, unspecified Diabetic foot infection Hyperglycemia due to diabetes mellitus Plan 1. Admit to med session 2. Breathing treatment 3. Pain control management 4. IV antibiotic management 5. Management of fluids and electrolytes 6. Consultation for hospitalist 7. Diagnostic test left foot CT 8. DVT prophylaxis-on Lovenox 9. Repeat labs CBC, CMP in a.m. 10. Home medication reviewed and reconciled 11. Continue with current medical management 12. Treatment plan discussed with patient and RN. Patient verbalized understanding. Plan discussed with: Patient, Other (RN) My Orders Orders - ALVA LEE DNP Procedure Category Date Status Time Consistent DIET 06/26/24 Transmitted Carb(Ccho)Diabetes Breakfast Insulin Lantus PHA 06/26/24 Transmitted (Glargine) (Lantus) 07:00 Glucose Blood PHA 06/26/24 Transmitted (Accu-Chek Comfort 08:00 Moderate Insulin Ss PHA 06/26/24 Transmitted 08:00 Dextrose 50% Syringe PHA 06/26/24 Transmitted 06:00 Admit ADMIT 06/26/24 Transmitted 05:53 Allergies SIMÓN 06/26/24 In Process 05:53 Code Status CODE 06/26/24 Transmitted 05:53 0.9% Ns 1000 Ml PHA 06/26/24 Transmitted 06:00 Oxygen Per Hour RT 06/26/24 Transmitted 05:53 Hydrocodone-Acet PHA 06/26/24 Transmitted 5/325mg Tab ([place] 06:00 Ondansetron Hcl PHA 06/26/24 Transmitted (Zofran) 06:00 Docusate Sodium PHA 06/26/24 Transmitted Capsule (Colace 06:00 Enoxaparin Sodium PHA 06/26/24 Transmitted (Lovenox) 10:00 Zinc Sulfate PHA 06/26/24 Transmitted 10:00 Ascorbic Acid Tablet PHA 06/26/24 Transmitted (Vitamin C Tablet) 10:00 Complete Blood Count LAB 06/27/24 Verified 04:00 Comprehensive LAB 06/27/24 Verified Metabolic Panel 04:00 Condition: Serious [facility] 06/26/24 In Process 05:53 Acetaminophen Tablet PHA 06/26/24 Transmitted (Tylenol Tablet) 06:00 Bedrest With Bathroom SIMÓN 06/26/24 Transmitted Privileg 05:53 Nitroglycerin PHA 06/26/24 Transmitted Sublingual (Ntrostat 06:00 Morphine Sulfate PHA 06/26/24 Transmitted Injection 06:00 Notify Md Of Changes SIMÓN 06/26/24 Transmitted From Base 05:53 Emergency Dysrhythmia SIMÓN 06/26/24 Transmitted Protocol 05:53 Oxygen By Nasal RT 06/26/24 Transmitted Cannula 05:53 Hemoglobin A1c LAB 06/26/24 Transmitted 05:53 Problem List: (1) Cellulitis of left foot (2) Hyponatremia (3) Diabetic foot infection (4) Hyperglycemia due to diabetes mellitus (5) Leukocytosis, unspecified Date of Service: Jun 26, 2024 Billing Provider: ALVA LEE DNP Common Visit Codes: [id number] INP/OBS CARE (MOD) ALVA LEE DNP Jun 26, 2024 06:02
[2024-06-26] MEDS: SODIUM CHLORIDE 0.9% 1,000 ML IV SCH (06:52)
[2024-06-26] MEDS: INSULIN LANTUS (GLARGINE) 1 /0.01ml (100units/ml) SC SCH (06:54)
[2024-06-26] MEDS: VANCOMYCIN 1GM/250ML KIT 250 ML IV ONE (06:54)
[2024-06-26] MEDS: InsuLIN REG 1unit/0.01ml Soln (100units/ml) SC SCH (08:25)
[2024-06-26] MEDS: ACCU-CHEK COMFORT CURVE STRIP VI SCH (08:26)
[2024-06-26 09:00] VITALS: BP 106/63; PULSE 118; TEMP 99.5; O2SAT 93
[2024-06-26] MEDS: ACETAMINOPHEN 325 MG TAB PO PRN (09:18)
[2024-06-26] MEDS: ASCORBIC ACID 500 MG TAB PO SCH (09:18)
[2024-06-26] MEDS: ENOXAPARIN SOD 40 MG/0.4 ML SYRINGE SC SCH (09:19)
[2024-06-26] MEDS: ZINC SULFATE 220mg CAP or TAB PO SCH (10:08)
[2024-06-26 13:00] VITALS: BP 130/58; PULSE 90; RESP 17; TEMP 97.4; O2SAT 95
[2024-06-26] MEDS ORDERED: VANCOMYCIN 1GM/250ML KIT 250 ML IV SCH (15:00)
[2024-06-26 17:00] VITALS: BP 139/79; PULSE 101; RESP 16; TEMP 98.6; O2SAT 98
[2024-06-26 22:45] VITALS: BP 134/77; PULSE 101; RESP 18; TEMP 99.5; O2SAT 94
[2024-06-27] VITALS (7 sets, daily range): BP systolic 106–148; BP diastolic 52–86; PULSE 83–105; RESP 16–18; TEMP 97.6–100.8; O2SAT 94–98
[2024-06-27] MEDS: VANCOMYCIN 1GM/250ML KIT 250 ML IV SCH ×2 (01:19→21:25)
[2024-06-27 07:04] LABS: Alanine Aminotransferase 11 U/L (7-40); Albumin 3.6 g/dL (3.2-4.8); Alkaline Phosphatase 103 U/L (46-116); Anion Gap 5 (5-15); BUN/Creatinine Ratio 12.3 (10.0-20.0); Bilirubin, Total 0.5 mg/dL (0.2-1.0); Calcium 9.6 mg/dL (8.7-10.4); Carbon Dioxide 27 mmol/L (20-31); Potassium 3.9 mmol/L (3.5-5.1); Sodium 139 mmol/L (136-145); Total Protein 7.1 g/dL (5.7-8.2)
[2024-06-27 07:06] LABS: Aspartate Aminotransferase < 8 U/L (13-40); Blood Urea Nitrogen 7 mg/dL (9-23); Chloride 107 mmol/L (98-107); Glucose 203 mg/dL (74-106)
[2024-06-27 07:17] LABS: Basophils # (auto) 0.1 10 ^3/uL (0-0.2); Basophils % (auto) 0.6 % (0.0-2.0); Eosinophils # (auto) 0.6 10 ^3/uL (0-0.8); Eosinophils % (auto) 4.8 % (0.0-7.0); Hematocrit 30.7 % (36.0-46.0); Lymphocytes # (auto) 1.9 10 ^3/uL (0.4-5.4); Lymphocytes % (auto) 16.4 % (10.0-50.0); Mean Corpuscular Hemoglobin 27.6 pg (28.0-32.0); Mean Corpuscular Hgb Conc. 32.7 g/dL (32.0-36.0); Mean Corpuscular Volume 84.4 fL (80.0-100.0); Monocytes # (auto) 0.7 10 ^3/uL (0-1.3); Monocytes % (auto) 6.4 % (0.0-12.0); Neutrophils # (auto) 8.4 10 ^3/uL (1.6-8.6); Neutrophils % (auto) 71.8 % (37.0-80.0); Platelet Count (auto) 369 10^3/uL (140-450); Red Blood Cells 3.64 10^6/uL (4.0-5.20); Red Cell Distribution Width 13.6 % (11.8-14.3); White Blood Cell 11.7 10^3/uL (4.4-10.8)
--- NOTE | 2024-06-27 20:15 | DVHPN2 ---
Subjective in bed resting Changes from previous H/P or p: No Changes Eyes: No Pain, No Vision change, No Conjunctivae inflammation, No Eyelid inflammation, No Other, No Redness ENT: No Ear pain, No Ear discharge, No Nose pain, No Nose discharge, No Nose congestion, No Mouth pain, No Mouth swelling, No Throat pain, No Throat swelling, No Other Cardiovascular: No Chest Pain, No Palpitations, No Orthopnea, No Paroxysmal Noc. Dyspnea, No Edema, No Lt Headedness, No Other Respiratory: No Cough, No Dry, No Shortness of breath, No SOB with excertion, No Wheezing, No Hemoptysis, No Pleuritic Pain, No Sputum, No Other Gastrointestinal: No Nausea, No Vomiting, No Abdominal Pain, No Diarrhea, No Constipation, No Melena, No Hematochezia, No Other Genitourinary: No Dysuria, No Frequency, No Incontinence, No Hematuria, No Retention, No Other Musculoskeletal: other (Left foot redness and swelling); No neck pain, No shoulder pain, No arm pain, No back pain, No hand pain, No leg pain, No foot pain Skin: No Rash, No Lesions, No Jaundice, No Bruising, No Other Objective Vitals Vital Signs Date Time Temp Pulse Resp B/P (MAP) Pulse Ox O2 Delivery O2 Flow Rate FiO2 06/27/24 17:00 99.0 91 18 137/70 (92) 98 99.0 06/27/24 08:00 Room Air* 0 21 Intake/Output Intake and Output 06/27/24 05:00 Intake Total 500 ml Balance 500 ml IV Total 500 ml # Voids 3 Medications Current Medications Medications Dose Ordered Sig/Jerome Route Start Time Stop Time Status Last Admin Dose Admin Vancomycin HCl 0 ml @ 0 mls/hr UD IV 06/26/24 01:00 UNV Vancomycin HCl 0 ml @ 0 mls/hr UD IV 06/26/24 02:15 Insulin Glargine 15 units BID@0700,2200 SC 06/26/24 07:00 06/27/24 06:27 15 UNITS Diagnostic Test (Pha) 1 strip IQ4HR 06/26/24 08:00 06/27/24 16:10 1 STRIP Insulin Human Regular IQ4HR SC 06/26/24 08:00 06/27/24 15:55 12 UNITS Dextrose 50 ml UD PRN IV 06/26/24 06:00 Sodium Chloride 1,000 ml @ 120 mls/hr Q8H20M IV 06/26/24 06:00 06/27/24 15:39 120 MLS/HR Acetaminophen/ Hydrocodone Bitart 1 tab Q4HP PRN PO 06/26/24 06:00 Ondansetron HCl 4 mg Q4HP PRN IV 06/26/24 06:00 Docusate Sodium 100 mg BIDPRN PRN PO 06/26/24 06:00 Enoxaparin Sodium 40 mg DAILY SC 06/26/24 10:00 06/27/24 10:18 40 MG Zinc Sulfate 220 mg DAILY PO 06/26/24 10:00 06/27/24 10:18 220 MG Ascorbic Acid 500 mg BID PO 06/26/24 10:00 06/27/24 10:18 500 MG Acetaminophen 650 mg Q6HP PRN PO 06/26/24 06:00 06/27/24 10:25 650 MG Nitroglycerin 0.4 mg Q5MINP PRN SL 06/26/24 06:00 Morphine Sulfate 2 mg Q30M PRN IV 06/26/24 06:00 Vancomycin HCl 250 ml @ 250 mls/hr Q8H IV 06/27/24 22:00 Laboratory Results Laboratory Tests 06/27/24 05:56 Chemistry Test 06/27/24 05:56 Albumin 3.6 g/dL (3.2-4.8) Calcium Level 9.6 mg/dL (8.7-10.4) Total Protein 7.1 g/dL (5.7-8.2) LFT Test 06/27/24 05:56 Alanine Aminotransferase (ALT) 11 U/L (7-40) Alkaline Phosphatase 103 U/L (46-116) Aspartate Amino Transferase (AST) < 8 U/L (13-40) L Total Bilirubin 0.5 mg/dL (0.2-1.0) Microbiology Microbiology Date/Time Source Procedure Growth Status 06/26/24 07:08 Blood Blood Culture - Preliminary NO GROWTH AFTER 24 HOURS OF INCUBATION. Resulted Assessment/Plan Assessment/Plan Cellulitis of left foot complicated with abscess with drainage Hyponatremia Diabetic foot infection Hyperglycemia due to diabetes mellitus Continue IV abx vanco and will add gram neg coverage and anaerobes pending podiatry consult Plan discussed with: Patient My Orders Orders - IRENA,BRITTANY J MD Procedure Category Date Status Time Cleanse Wound With SIMÓN 06/27/24 In Process Wound Clean 12:22 * Dietary Consult CONS 06/27/24 Transmitted 14:13 Date of Service: Jun 27, 2024 Billing Provider: BRITTANY OSBORN MD Common Visit Codes: [id number] INP/OBS CARE(HIGH) BRITTANY OSBORN MD Jun 27, 2024 20:15
[2024-06-28 08:00] VITALS: PULSE 85; PULSE 86; RESP 18
[2024-06-28 09:00] VITALS: BP 107/52; PULSE 85; RESP 18; TEMP 97.9; O2SAT 95
--- NOTE | 2024-06-28 12:25 | DVHINCON2 ---
Date Seen: Jun 28, 2024 Reason for Consultation Left foot abscess History of Present Illness The patient is a 44-year-old female with past medical history of diabetes mellitus and left foot cellulitis who presented to [facility] ED for evaluation of left foot cellulitis. The patient was recently admitted to this facility for left foot cellulitis, return new complaint redness and swelling. Patient was seen and evaluated in the ED, laboratory data shows WBC 18.9, platelets 465, sodium 130, potassium 4.0, BUN 10, creatinine 0.84, GFR 87, glucose 453. Left foot CT revealing extensive fat stranding and phlegmon is seen throughout the superficial left foot suggestive of cellulitis. Patient was started on antibiotic regimen vancomycin, please see medication orders section in the computer. On my assessment, patient denied chest pain, no headache, no dizziness, no shortness breath, no nausea, no vomiting, no fever, no chills. Sandi serrano was admitted for further evaluation and medical management. Past Medical History See H&P Past Surgical History See H&P Family History: Patient reports no known family medical history. Allergies: Coded Allergies: Penicillins (Verified Allergy, 08/14/09) Uncoded Allergies: PEDIASOL (Allergy, 08/14/09) Home Meds Active Scripts Doxycycline Monohydrate (Doxycycline Monohydrate) 100 Mg Tab, 100 MG PO BID for 10 Days, #20 TAB 0 Refills Prov:OLIVA BONDS MD 06/17/24 Methocarbamol (Methocarbamol) 750 Mg Tab, 750 MG PO BID, #20 TAB Prov:ARIELLA ALEMAN 01/03/24 Ibuprofen (Ibuprofen) 800 Mg Tab, 1 TAB PO TID, #30 TAB Prov:ARIELLA ALEMAN 01/03/24 Reported Medications [Paroxetine] No Conflict Check 11/01/12 [Metformin [id number] Mg] (Metformin Hcl) 1000 MG TAB No Conflict Check, MG 11/01/12 Current Medications Current Medications Medications (Trade) Dose Ordered Sig/Jerome Route PRN Reason Start Time Stop Time Status Last Admin Vancomycin HCl 250 ml @ 250 mls/hr Q8H IV 06/27/24 22:00 06/28/24 06:16 Vital Signs Vital Signs Date Time Temp Pulse Resp B/P (MAP) Pulse Ox O2 Delivery O2 Flow Rate FiO2 06/28/24 09:00 97.9 85 18 107/52 (70) 95 97.9 06/28/24 08:00 Room Air* 0 21 Physical Exam DERMATOLOGIC EXAM: - Skin is dry and cool to the touch dry bilaterally. - Nails 1-5 of the bilateral foot are thickened, discolored, dystrophic, and tender to palpate with subungual debris - Hair loss noted to bilateral feet - abscess located on the left 5th digit and lateral foot VASCULAR EXAM: - DP and PT pulses are palpable bilaterally. - [employer] is brisk to all digits. - Feet are cool to touch compared to lower legs bilaterally. NEUROLOGIC EXAM: - Normal light touch sensation to the superficial peroneal, deep peroneal, sural, saphenous, and tibial nerve branches. - Protective sensation is diminished as tested with a 5.07 10g [place] bilaterally. MUSCULOSKELETAL EXAM: - No gross deformities - Muscle strength is 5/5 and active motion is pain-free and symmetrical bilaterally - No pain or crepitation with passive range of motion bilaterally to all major pedal joints Labs/Diagnostic Data Labs Test 06/28/24 11:34 06/27/24 13:20 06/27/24 05:56 06/26/24 01:22 Range/Units POC Glucose 253 H 70-106 mg/dl Vancomycin Level Trough 4.8 L 5-10 ug/mL White Blood Count 11.7 #H 4.4-10.8 10^3/uL Red Blood Count 3.64 L 4.0-5.20 10^6/uL Hemoglobin 10.0 L 12.2-16.2 g/dL Hematocrit 30.7 #L 36.0-46.0 % Mean Corpuscular Volume 84.4 80.0-100.0 fL Mean Corpuscular Hemoglobin 27.6 L 28.0-32.0 pg Mean Corpuscular Hemoglobin Concent 32.7 32.0-36.0 g/dL Red Cell Distribution Width 13.6 11.8-14.3 % Platelet Count 369 140-450 10^3/uL Mean Platelet Volume 7.6 6.9-10.8 fL Neutrophils (%) (Auto) 71.8 37.0-80.0 % Lymphocytes (%) (Auto) 16.4 10.0-50.0 % Monocytes (%) (Auto) 6.4 0.0-12.0 % Eosinophils (%) (Auto) 4.8 0.0-7.0 % Basophils (%) (Auto) 0.6 0.0-2.0 % Neutrophils # (Auto) 8.4 1.6-8.6 10 ^3/uL Lymphocytes # (Auto) 1.9 0.4-5.4 10 ^3/uL Monocytes # (Auto) 0.7 0-1.3 10 ^3/uL Eosinophils # (Auto) 0.6 0-0.8 10 ^3/uL Basophils # (Auto) 0.1 0-0.2 10 ^3/uL Nucleated Red Blood Cells 0.0 % Sodium Level 139 # 136-145 mmol/L Potassium Level 3.9 3.5-5.1 mmol/L Chloride Level 107 98-107 mmol/L Carbon Dioxide Level 27 20-31 mmol/L Anion Gap 5 5-15 Blood Urea Nitrogen 7 L 9-23 mg/dL Creatinine 0.57 # 0.550-1.02 mg/dL Glomerular Filtration Rate Calc 113 >90 mL/min BUN/Creatinine Ratio 12.3 10.0-20.0 Serum Glucose 203 H 74-106 mg/dL Calcium Level 9.6 8.7-10.4 mg/dL Total Bilirubin 0.5 0.2-1.0 mg/dL Aspartate Amino Transferase (AST) < 8 L 13-40 U/L Alanine Aminotransferase (ALT) 11 7-40 U/L Alkaline Phosphatase 103 46-116 U/L Total Protein 7.1 5.7-8.2 g/dL Albumin 3.6 3.2-4.8 g/dL Lactic Acid Level 1.5 0.4-2.0 mmol/L Microbiology Date/Time Source Procedure Growth Status 06/26/24 07:08 Blood Blood Culture - Preliminary NO GROWTH AFTER 48 HOURS OF INCUBATION. Resulted Problems(with codes): (1) Cervical muscle strain (2) Acute headache (3) Left leg cellulitis (4) Hyponatremia (5) Cellulitis of foot (6) Diabetic foot infection (7) Hyperglycemia due to diabetes mellitus (8) Cellulitis of left foot (9) Leukocytosis, unspecified Plan/Recommendation ASSESSMENT: Patient is a 44 year old seen on the floor for a left foot abscess PLAN: - The patients chart was reviewed, clinical findings were discussed with the patient, the etiologies of the conditions were discussed in detail, and a treatment plan was agreed to at this time, with both oral and written instructions provided. - reviewed advanced imaging - discussed plan is to perform an incision and drainage - patient will be NPO at midnight - take him to the OR neuro - patient will return to the OR at a future date for closure - we will get cultures in the OR - can weightbear as tolerated in postoperative shoe All questions were answered and concerns addressed to the patient's satisfaction. The patient was given the phone number to the clinic and was told how to make contact with the clinic should any concerns or questions arise. Patient understands that if any questions or concerns arise prior to the next appointment, we should be contacted immediately. FOLLOW-UP: Continue to follow while inpatient Plan discussed with: Patient Date of Service: Jun 28, 2024 Billing Provider: KILEY POND DPM Common Visit Codes: [id number] INP/OBS CARE (HIGH) KILEY POND DPM Jun 28, 2024 12:25
[2024-06-28 13:00] VITALS: BP 114/72; PULSE 87; RESP 17; TEMP 97.8; O2SAT 94
[2024-06-28] MEDS ORDERED: VANCOMYCIN 1.25GM/250ML 250 ML IV SCH (14:00)
[2024-06-28 14:43] LABS: Basophils # (auto) 0.1 10 ^3/uL (0-0.2); Basophils % (auto) 0.5 % (0.0-2.0); Eosinophils # (auto) 0.8 10 ^3/uL (0-0.8); Eosinophils % (auto) 6.8 % (0.0-7.0); Hematocrit 29.3 % (36.0-46.0); Lymphocytes # (auto) 2.1 10 ^3/uL (0.4-5.4); Lymphocytes % (auto) 17.8 % (10.0-50.0); Mean Corpuscular Hemoglobin 28.4 pg (28.0-32.0); Mean Corpuscular Volume 83.5 fL (80.0-100.0); Monocytes # (auto) 0.7 10 ^3/uL (0-1.3); Monocytes % (auto) 6.1 % (0.0-12.0); Neutrophils # (auto) 8.3 10 ^3/uL (1.6-8.6); Neutrophils % (auto) 68.8 % (37.0-80.0); Platelet Count (auto) 403 10^3/uL (140-450); Red Blood Cells 3.51 10^6/uL (4.0-5.20); Red Cell Distribution Width 13.6 % (11.8-14.3)
--- NOTE | 2024-06-28 14:43 | DVH ---
EXAM: MRI MRI L FOOT WO CONTRAST HISTORY: OSTEIO VRS ABCESS 5TH DIDG COMPARISON: CT CT L FOOT WO CONTRAST on DOS: 06/26/24 TECHNIQUE: Multiplanar, multisequence MRI was performed. FINDINGS: Destructive changes of the head of the left 5th metatarsal. Destructive changes of the base of the pr oximal phalanx of the left 5th digit. There is a joint effusion at 5th metatarsal phalangeal joint There is surrounding soft tissue swelling. IMPRESSION: 1. Findings suggest osteomyelitis left fifth MTP joint
[2024-06-28] MEDS: guaiFENesin-DM 100/10mg/5ml SYR PO PRN (16:32)
[2024-06-28 17:00] VITALS: BP 123/81; PULSE 88; RESP 17; TEMP 97.8; O2SAT 96
--- NOTE | 2024-06-28 18:44 | DVHPN2 ---
Subjective in bed resting Changes from previous H/P or p: No Changes Eyes: No Pain, No Vision change, No Conjunctivae inflammation, No Eyelid inflammation, No Other, No Redness ENT: No Ear pain, No Ear discharge, No Nose pain, No Nose discharge, No Nose congestion, No Mouth pain, No Mouth swelling, No Throat pain, No Throat swelling, No Other Cardiovascular: No Chest Pain, No Palpitations, No Orthopnea, No Paroxysmal Noc. Dyspnea, No Edema, No Lt Headedness, No Other Respiratory: No Cough, No Dry, No Shortness of breath, No SOB with excertion, No Wheezing, No Hemoptysis, No Pleuritic Pain, No Sputum, No Other Gastrointestinal: No Nausea, No Vomiting, No Abdominal Pain, No Diarrhea, No Constipation, No Melena, No Hematochezia, No Other Genitourinary: No Dysuria, No Frequency, No Incontinence, No Hematuria, No Retention, No Other Musculoskeletal: other (Left foot redness and swelling); No neck pain, No shoulder pain, No arm pain, No back pain, No hand pain, No leg pain, No foot pain Skin: No Rash, No Lesions, No Jaundice, No Bruising, No Other Objective Vitals Vital Signs Date Time Temp Pulse Resp B/P (MAP) Pulse Ox O2 Delivery O2 Flow Rate FiO2 06/28/24 17:00 97.8 88 17 123/81 (95) 96 97.8 06/28/24 08:00 Room Air* 0 21 Intake/Output Intake and Output 06/28/24 05:00 Intake Total 4036 ml Balance 4036 ml Intake Oral 1376 ml IV Total 2660 ml # Voids 9 # Bowel Movements 2 Medications Current Medications Medications Dose Ordered Sig/Jerome Route Start Time Stop Time Status Last Admin Dose Admin Vancomycin HCl 0 ml @ 0 mls/hr UD IV 06/26/24 01:00 UNV Vancomycin HCl 0 ml @ 0 mls/hr UD IV 06/26/24 02:15 Insulin Glargine 15 units BID@0700,2200 SC 06/26/24 07:00 06/28/24 06:13 15 UNITS Diagnostic Test (Pha) 1 strip IQ4HR 06/26/24 08:00 06/28/24 16:00 1 STRIP Insulin Human Regular IQ4HR SC 06/26/24 08:00 06/28/24 16:36 8 UNITS Dextrose 50 ml UD PRN IV 06/26/24 06:00 Sodium Chloride 1,000 ml @ 120 mls/hr Q8H20M IV 06/26/24 06:00 06/28/24 06:25 120 MLS/HR Acetaminophen/ Hydrocodone Bitart 1 tab Q4HP PRN PO 06/26/24 06:00 Ondansetron HCl 4 mg Q4HP PRN IV 06/26/24 06:00 Docusate Sodium 100 mg BIDPRN PRN PO 06/26/24 06:00 Enoxaparin Sodium 40 mg DAILY SC 06/26/24 10:00 06/28/24 09:36 40 MG Zinc Sulfate 220 mg DAILY PO 06/26/24 10:00 06/28/24 09:35 220 MG Ascorbic Acid 500 mg BID PO 06/26/24 10:00 06/28/24 09:35 500 MG Acetaminophen 650 mg Q6HP PRN PO 06/26/24 06:00 06/28/24 06:37 650 MG Nitroglycerin 0.4 mg Q5MINP PRN SL 06/26/24 06:00 Morphine Sulfate 2 mg Q30M PRN IV 06/26/24 06:00 Vancomycin HCl 250 ml @ 250 mls/hr Q8H IV 06/27/24 22:00 06/28/24 14:48 250 MLS/HR Guaifenesin/ Dextromethorphan 10 ml Q6HP PRN PO 06/28/24 14:15 06/28/24 16:32 10 ML Vancomycin HCl 250 ml @ 200 mls/hr Q8H IV 06/28/24 22:00 Laboratory Results Laboratory Tests 06/27/24 05:56 06/28/24 13:25 Microbiology Microbiology Date/Time Source Procedure Growth Status 06/26/24 07:08 Blood Blood Culture - Preliminary NO GROWTH AFTER 48 HOURS OF INCUBATION. Resulted Assessment/Plan Assessment/Plan Cellulitis of left foot complicated with abscess with drainage Hyponatremia Diabetic foot infection Hyperglycemia due to diabetes mellitus Continue IV abx vanco pending podiatry consult discussed and will place npo tomorrow for possible I and D Plan discussed with: Patient My Orders Orders - BRITTANY OSBORN MD Procedure Category Date Status Time *Podiatry Consult CONS 06/28/24 Eduardo Alvarenga(Dvmg) 11:50 Admit ADMIT 06/28/24 Transmitted 12:30 Guaifenesin-Dextromet PHA 06/28/24 In Process Liquid (Robitussin 14:15 Dietary NOTICE 06/28/24 Transmitted Recommendations 15:09 Date of Service: Jun 28, 2024 Billing Provider: BRITTANY OSBORN MD Common Visit Codes: [id number] INP/OBS CARE(HIGH) BRITTANY OSBORN MD Jun 28, 2024 18:44
[2024-06-28 20:00] VITALS: PULSE 86; PULSE 95; RESP 18; O2SAT 95
[2024-06-28 21:00] VITALS: BP 140/85; PULSE 95; RESP 18; TEMP 99.4; O2SAT 93
[2024-06-28] MEDS: VANCOMYCIN 1.25GM/250ML 250 ML IV SCH (21:25)
[2024-06-29] VITALS (9 sets, daily range): BP systolic 122–161; BP diastolic 62–90; PULSE 82–109; RESP 18–20; TEMP 97.7–98.9; O2SAT 93–99
[2024-06-29] MEDS: HYDROcodone-ACET 5/325MG TAB PO PRN (06:09)
[2024-06-29] MEDS ORDERED: PROPOFOL 10 MG/ML 20 ML IV ONE (12:19)
[2024-06-29] MEDS ORDERED: fentaNYL CITRATE 100 MCG/2 ML VL ONE (12:19)
--- NOTE | 2024-06-29 12:24 | DVHPN2 ---
Subjective The patient is a 44-year-old female with past medical history of diabetes mellitus and left foot cellulitis who presented to [facility] ED for evaluation of left foot cellulitis. The patient was recently admitted to this facility for left foot cellulitis, return new complaint redness and swelling. Patient was seen and evaluated in the ED, laboratory data shows WBC 18.9, platelets 465, sodium 130, potassium 4.0, BUN 10, creatinine 0.84, GFR 87, glucose 453. Left foot CT revealing extensive fat stranding and phlegmon is seen throughout the superficial left foot suggestive of cellulitis. Patient was started on antibiotic regimen vancomycin, please see medication orders section in the computer. On my assessment, patient denied chest pain, no headache, no dizziness, no shortness breath, no nausea, no vomiting, no fever, no chills. Patient was admitted for further evaluation and medical management. Changes from previous H/P or p: No Changes Eyes: No Pain, No Vision change, No Conjunctivae inflammation, No Eyelid inflammation, No Other, No Redness ENT: No Ear pain, No Ear discharge, No Nose pain, No Nose discharge, No Nose congestion, No Mouth pain, No Mouth swelling, No Throat pain, No Throat swelling, No Other Cardiovascular: No Chest Pain, No Palpitations, No Orthopnea, No Paroxysmal Noc. Dyspnea, No Edema, No Lt Headedness, No Other Respiratory: No Cough, No Dry, No Shortness of breath, No SOB with excertion, No Wheezing, No Hemoptysis, No Pleuritic Pain, No Sputum, No Other Gastrointestinal: No Nausea, No Vomiting, No Abdominal Pain, No Diarrhea, No Constipation, No Melena, No Hematochezia, No Other Genitourinary: No Dysuria, No Frequency, No Incontinence, No Hematuria, No Retention, No Other Musculoskeletal: other (Left foot redness and swelling); No neck pain, No shoulder pain, No arm pain, No back pain, No hand pain, No leg pain, No foot pain Skin: No Rash, No Lesions, No Jaundice, No Bruising, No Other Objective Vitals Vital Signs Date Time Temp Pulse Resp B/P (MAP) Pulse Ox O2 Delivery O2 Flow Rate FiO2 06/29/24 09:00 97.8 86 20 122/62 (82) 93 97.8 06/29/24 08:00 Room Air* 0 21 Intake/Output Intake and Output 1/21/25 07:00 Intake Total 3340 ml Balance 3340 ml Intake Oral 2000 ml IV Total 1340 ml # Voids 6 # Bowel Movements 1 Exam DERMATOLOGIC EXAM: - Skin is dry and cool to the touch dry bilaterally. - Nails 1-5 of the bilateral foot are thickened, discolored, dystrophic, and tender to palpate with subungual debris - Hair loss noted to bilateral feet - abscess located on the left 5th digit and lateral foot VASCULAR EXAM: - DP and PT pulses are palpable bilaterally. - ANIMAL HERDER is brisk to all digits. - Feet are cool to touch compared to lower legs bilaterally. NEUROLOGIC EXAM: - Normal light touch sensation to the superficial peroneal, deep peroneal, sural, saphenous, and tibial nerve branches. - Protective sensation is diminished as tested with a 5.07 10g Mead-Aron bilaterally. MUSCULOSKELETAL EXAM: - No gross deformities - Muscle strength is 5/5 and active motion is pain-free and symmetrical bilaterally - No pain or crepitation with passive range of motion bilaterally to all major pedal joints Medications Current Medications Medications Dose Ordered Sig/Jerome Route Start Time Stop Time Status Last Admin Dose Admin Vancomycin HCl 0 ml @ 0 mls/hr UD IV 06/26/24 01:00 UNV Vancomycin HCl 0 ml @ 0 mls/hr UD IV 06/26/24 02:15 Insulin Glargine 15 units BID@0700,2200 SC 06/26/24 07:00 06/28/24 21:46 Diagnostic Test (Pha) 1 strip IQ4HR 06/26/24 08:00 06/29/24 08:16 Insulin Human Regular IQ4HR SC 06/26/24 08:00 06/29/24 00:00 Dextrose 50 ml UD PRN IV 06/26/24 06:00 Sodium Chloride 1,000 ml @ 120 mls/hr Q8H20M IV 06/26/24 06:00 06/29/24 09:22 Acetaminophen/ Hydrocodone Bitart 1 tab Q4HP PRN PO 06/26/24 06:00 06/29/24 06:09 Ondansetron HCl 4 mg Q4HP PRN IV 06/26/24 06:00 Docusate Sodium 100 mg BIDPRN PRN PO 06/26/24 06:00 Enoxaparin Sodium 40 mg DAILY SC 06/26/24 10:00 06/29/24 10:17 Zinc Sulfate 220 mg DAILY PO 06/26/24 10:00 06/29/24 10:17 Ascorbic Acid 500 mg BID PO 06/26/24 10:00 06/29/24 10:17 Acetaminophen 650 mg Q6HP PRN PO 06/26/24 06:00 06/28/24 06:37 Nitroglycerin 0.4 mg Q5MINP PRN SL 06/26/24 06:00 Morphine Sulfate 2 mg Q30M PRN IV 06/26/24 06:00 Guaifenesin/ Dextromethorphan 10 ml Q6HP PRN PO 06/28/24 14:15 06/28/24 21:23 Vancomycin HCl 250 ml @ 200 mls/hr Q8H IV 06/28/24 22:00 06/29/24 06:03 Laboratory Results Laboratory Tests 06/27/24 05:56 06/28/24 13:25 Microbiology Microbiology Date/Time Source Procedure Growth Status 06/26/24 07:08 Blood Blood Culture - Preliminary NO GROWTH AFTER 72 HOURS OF INCUBATION. Resulted Assessment/Plan Assessment/Plan ASSESSMENT: Patient is a 44 year old seen on the floor for a left foot abscess PLAN: - The patients chart was reviewed, clinical findings were discussed with the patient, the etiologies of the conditions were discussed in detail, and a treatment plan was agreed to at this time, with both oral and written instructions provided. - reviewed advanced imaging - discussed plan is to perform an incision and drainage - patient will be NPO at midnight - take her to the OR today - patient will return to the OR at a future date for closure - we will get cultures in the OR - can weightbear as tolerated in postoperative shoe All questions were answered and concerns addressed to the patient's satisfaction. The patient was given the phone number to the clinic and was told how to make contact with the clinic should any concerns or questions arise. Patient understands that if any questions or concerns arise prior to the next appointment, we should be contacted immediately. FOLLOW-UP: Continue to follow while inpatient Plan discussed with: Patient Problem List: (1) Hyponatremia (2) Cellulitis of foot (3) Diabetic foot infection (4) Hyperglycemia due to diabetes mellitus (5) Cellulitis of left foot (6) Leukocytosis, unspecified (7) Cervical muscle strain (8) Acute headache (9) Left leg cellulitis Date of Service: Jun 29, 2024 Billing Provider: KILEY POND DPM Common Visit Codes: [id number] INP/OBS CARE(MOD) KILEY POND DPM Jun 29, 2024 12:24
[2024-06-29] MEDS ORDERED: ePHEDrine SULFATE 50 MG/ML AMP ONE (12:53)
[2024-06-29] MEDS ORDERED: ONDANSETRON HCL 4 MG/2 ML VIAL ONE (12:58)
[2024-06-29] MEDS ORDERED: ACETAMINOPHEN IV 1000 MG/100ML (10MG/ML) IV PRN (13:15)
[2024-06-29] MEDS: ONDANSETRON HCL 4 MG/2 ML VIAL IV ONE (13:15)
[2024-06-29] MEDS ORDERED: HYDROmorphone HCL 2 MG/ML VL/or syr IV PRN (13:15)
--- NOTE | 2024-06-29 13:17 | DVHOP2 ---
Operative Report - 2 Report Details Date: 06/29/24 Preop Diagnosis: 1. Left foot abscess 2. Left foot osteomyelitis 3. Left foot diabetic foot ulcer 4. Left foot cellulitis Postop Diagnosis: Same as preop Surgeon: Kiley Pond MD Anesthesiologist: See anesthesia Anesthesia: General Consent: The patient was informed of the risks and benefits of the procedure. These include but are not limited to complications of anesthesia, postoperative infection, incomplete relief of symptoms, recurrence of symptoms, damage to blood vessels, nerves and tendons, deep venous thrombosis, pulmonary embolism and possible need for repeat surgery in the future. Complications: None Estimated Blood Loss: Minimal Fluids: See anesthesia Findings: Consistent with the diagnosis Indications for Surgery: Worsening left foot wound Name of Procedure Performed 1. Left foot I&D to bone (25859) 2. Left foot bone biopsy () Procedure Details Procedure Details: PRE-PROCEDURE INFORMATION: In the pre-op holding area, the extremity to be operated on was clearly marked and the patient verified correct laterality of the marking. The patient was transferred to the OR table and placed in a supine position. A timeout was performed in which identification of the correct patient, procedure, location, and materials was done. The left foot and leg were prepped and draped in normal sterile fashion. DESCRIPTION OF PROCEDURE: Attention was directed to the left foot where area of fluctuance was noted. An incision was made over this area and was deepened through blunt dissection. The incision was deepened to the level of abscess and bone. Care was taken to the dissection to avoid any neurovascular and tendinous structures. The incision was deepened to the bone, and the abscess appeared to be purulent fluid consistent with pus. The cortices of the bone was then removed with [place] an all necrotic tissue. After the abscess was drained, the area was irrigated with 3 L normal saline using cysto tubing. Deep cultures were then obtained from the wound. A bone biopsy was then taken of the left 5th metatarsal which was deepened to the muscle belly and tendons. The bone was then sent to pathology to determine the extent of osteomyelitis. The area was then inspected and any areas of tracking, especially along the tendons were also drained. The wound was packed with Betadine-soaked gauze and we will need to be closed at a later date. POSTOPERATIVE INFORMATION: The patient tolerated the above noted procedure and anesthesia well and was transferred to the PACU with vital signs stable, and v ascular status intact with capillary refill intact to all digits. Cultures were taken the patient will return to the floor for continued IV antibiotics. Patient will return to the OR on for another incision and drainage and possible closure at that point. Patient can weightbear as tolerated with a postoperative shoe. Specimen: Left 5th metatarsal Condition Good Disposition Still a Patient KILEY POND DPM Jun 29, 2024 13:17
[2024-06-29] MEDS: BUPIVACAINE 0.25% INJ 50ML VIAL ONE (13:28)
--- NOTE | 2024-06-29 20:27 | DVHPN2 ---
Subjective in bed resting Changes from previous H/P or p: No Changes Eyes: No Pain, No Vision change, No Conjunctivae inflammation, No Eyelid inflammation, No Other, No Redness ENT: No Ear pain, No Ear discharge, No Nose pain, No Nose discharge, No Nose congestion, No Mouth pain, No Mouth swelling, No Throat pain, No Throat swelling, No Other Cardiovascular: No Chest Pain, No Palpitations, No Orthopnea, No Paroxysmal Noc. Dyspnea, No Edema, No Lt Headedness, No Other Respiratory: No Cough, No Dry, No Shortness of breath, No SOB with excertion, No Wheezing, No Hemoptysis, No Pleuritic Pain, No Sputum, No Other Gastrointestinal: No Nausea, No Vomiting, No Abdominal Pain, No Diarrhea, No Constipation, No Melena, No Hematochezia, No Other Genitourinary: No Dysuria, No Frequency, No Incontinence, No Hematuria, No Retention, No Other Musculoskeletal: other (Left foot redness and swelling); No neck pain, No shoulder pain, No arm pain, No back pain, No hand pain, No leg pain, No foot pain Skin: No Rash, No Lesions, No Jaundice, No Bruising, No Other Objective Vitals Vital Signs Date Time Temp Pulse Resp B/P (MAP) Pulse Ox O2 Delivery O2 Flow Rate FiO2 06/29/24 17:00 97.9 82 20 127/70 (89) 98 97.9 06/29/24 13:47 Room Air 0 98 Intake/Output Intake and Output 06/29/24 05:00 Intake Total 3340 ml Balance 3340 ml Intake Oral 2000 ml IV Total 1340 ml # Voids 6 # Bowel Movements 1 General Appearance: Alert, Oriented X3 Lungs: Clear to auscultation Cardiovascular: Regular rate Medications Current Medications Medications Dose Ordered Sig/Jerome Route Start Time Stop Time Status Last Admin Dose Admin Vancomycin HCl 0 ml @ 0 mls/hr UD IV 06/26/24 01:00 UNV Vancomycin HCl 0 ml @ 0 mls/hr UD IV 06/26/24 02:15 Insulin Glargine 15 units BID@0700,2200 SC 06/26/24 07:00 06/28/24 21:46 15 UNITS Diagnostic Test (Pha) 1 strip IQ4HR 06/26/24 08:00 06/29/24 16:00 1 STRIP Insulin Human Regular IQ4HR SC 06/26/24 08:00 06/29/24 17:04 6 UNITS Dextrose 50 ml UD PRN IV 06/26/24 06:00 Sodium Chloride 1,000 ml @ 120 mls/hr Q8H20M IV 06/26/24 06:00 06/29/24 17:24 120 MLS/HR Acetaminophen/ Hydrocodone Bitart 1 tab Q4HP PRN PO 06/26/24 06:00 06/29/24 06:09 1 TAB Ondansetron HCl 4 mg Q4HP PRN IV 06/26/24 06:00 Docusate Sodium 100 mg BIDPRN PRN PO 06/26/24 06:00 Enoxaparin Sodium 40 mg DAILY SC 06/26/24 10:00 06/29/24 10:17 40 MG Zinc Sulfate 220 mg DAILY PO 06/26/24 10:00 06/29/24 10:17 220 MG Ascorbic Acid 500 mg BID PO 06/26/24 10:00 06/29/24 10:17 500 MG Acetaminophen 650 mg Q6HP PRN PO 06/26/24 06:00 06/28/24 06:37 650 MG Nitroglycerin 0.4 mg Q5MINP PRN SL 06/26/24 06:00 Morphine Sulfate 2 mg Q30M PRN IV 06/26/24 06:00 Guaifenesin/ Dextromethorphan 10 ml Q6HP PRN PO 06/28/24 14:15 06/28/24 21:23 10 ML Vancomycin HCl 250 ml @ 200 mls/hr Q8H IV 06/28/24 22:00 06/29/24 16:57 200 MLS/HR Laboratory Results Laboratory Tests 06/27/24 05:56 06/28/24 13:25 Microbiology Microbiology Date/Time Source Procedure Growth Status 06/26/24 07:08 Blood Blood Culture - Preliminary NO GROWTH AFTER 72 HOURS OF INCUBATION. Resulted Assessment/Plan Assessment/Plan Cellulitis of left foot complicated with abscess with drainage Hyponatremia Diabetic foot infection Hyperglycemia due to diabetes mellitus Continue IV abx vanco pending podiatry consult discussed and will to OR today Plan discussed with: Patient Date of Service: Jun 29, 2024 Billing Provider: BRITTANY OSBORN MD Common Visit Codes: [id number] INP/OBS CARE(HIGH) BRITTANY OSBORN MD Jun 29, 2024 20:27
[2024-06-30] VITALS (8 sets, daily range): BP systolic 97–140; BP diastolic 45–85; PULSE 79–93; RESP 16–20; TEMP 97.2–98.7; O2SAT 91–97
--- NOTE | 2024-06-30 09:55 | DVHPN2 ---
Subjective The patient is seen and examined at bedside. The patient's pain is controlled. No fever or chill. Reviewed: Care Plan, H&P, Labs, Medications, Previous Orders, Radiology Changes from previous H/P or p: No Changes Eyes: No Pain, No Vision change, No Conjunctivae inflammation, No Eyelid inflammation, No Other, No Redness ENT: No Ear pain, No Ear discharge, No Nose pain, No Nose discharge, No Nose congestion, No Mouth pain, No Mouth swelling, No Throat pain, No Throat swelling, No Other Cardiovascular: No Chest Pain, No Palpitations, No Orthopnea, No Paroxysmal Noc. Dyspnea, No Edema, No Lt Headedness, No Other Respiratory: No Cough, No Dry, No Shortness of breath, No SOB with excertion, No Wheezing, No Hemoptysis, No Pleuritic Pain, No Sputum, No Other Gastrointestinal: No Nausea, No Vomiting, No Abdominal Pain, No Diarrhea, No Constipation, No Melena, No Hematochezia, No Other Genitourinary: No Dysuria, No Frequency, No Incontinence, No Hematuria, No Retention, No Other Musculoskeletal: other (Left foot redness and swelling); No neck pain, No shoulder pain, No arm pain, No back pain, No hand pain, No leg pain, No foot pain Skin: No Rash, No Lesions, No Jaundice, No Bruising, No Other Objective Vitals Vital Signs Date Time Temp Pulse Resp B/P (MAP) Pulse Ox O2 Delivery O2 Flow Rate FiO2 06/30/24 08:54 98.5 79 20 112/49 (70) 94 98.5 06/29/24 20:00 Room Air* 0 21 Intake/Output Intake and Output 06/30/24 07:00 Intake Total 4640 ml Balance 4640 ml Intake Oral 2590 ml IV Total 2050 ml # Voids 8 General Appearance: Alert, Oriented X3 Lungs: Clear to auscultation Cardiovascular: Regular rate Skin: Other (Cellulitis and wound on her left foot status post I and D .Her foot wrapped in bandage. No oozing or bleeding.) Medications Current Medications Medications Dose Ordered Sig/Jerome Route Start Time Stop Time Status Last Admin Dose Admin Vancomycin HCl 0 ml @ 0 mls/hr UD IV 06/26/24 01:00 UNV Vancomycin HCl 0 ml @ 0 mls/hr UD IV 06/26/24 02:15 Insulin Glargine 15 units BID@0700,2200 SC 06/26/24 07:00 06/30/24 06:40 15 UNITS Diagnostic Test (Pha) 1 strip IQ4HR 06/26/24 08:00 06/30/24 08:33 1 STRIP Insulin Human Regular IQ4HR SC 06/26/24 08:00 06/30/24 08:34 2 UNITS Dextrose 50 ml UD PRN IV 06/26/24 06:00 Sodium Chloride 1,000 ml @ 120 mls/hr Q8H20M IV 06/26/24 06:00 06/30/24 01:48 120 MLS/HR Acetaminophen/ Hydrocodone Bitart 1 tab Q4HP PRN PO 06/26/24 06:00 06/29/24 23:23 1 TAB Ondansetron HCl 4 mg Q4HP PRN IV 06/26/24 06:00 Docusate Sodium 100 mg BIDPRN PRN PO 06/26/24 06:00 Enoxaparin Sodium 40 mg DAILY SC 06/26/24 10:00 06/30/24 09:49 40 MG Zinc Sulfate 220 mg DAILY PO 06/26/24 10:00 06/30/24 09:48 220 MG Ascorbic Acid 500 mg BID PO 06/26/24 10:00 06/30/24 09:48 500 MG Acetaminophen 650 mg Q6HP PRN PO 06/26/24 06:00 06/28/24 06:37 650 MG Nitroglycerin 0.4 mg Q5MINP PRN SL 06/26/24 06:00 Morphine Sulfate 2 mg Q30M PRN IV 06/26/24 06:00 Guaifenesin/ Dextromethorphan 10 ml Q6HP PRN PO 06/28/24 14:15 06/28/24 21:23 10 ML Laboratory Results Laboratory Tests 06/27/24 05:56 06/28/24 13:25 Microbiology Microbiology Date/Time Source Procedure Growth Status 06/29/24 12:49 Foot Left Gram Stain - Final Resulted 06/29/24 12:49 Foot Left Anaerobic Culture Pending Resulted 06/29/24 12:49 Foot Left Aerobic Culture - Preliminary Resulted 06/26/24 07:08 Blood Blood Culture - Preliminary NO GROWTH AFTER 72 HOURS OF INCUBATION. 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 Plan discussed with: Patient Date of Service: Jun 30, 2024 Billing Provider: MARTHA HERNANDEZ MD Common Visit Codes: [id number] INP/OBS CARE(HIGH) MARTHA HERNANDEZ MD Jun 30, 2024 09:55
[2024-06-30] MEDS: VANCOMYCIN 1.25GM/250ML 250 ML IV SCH (17:25)
[2024-07-01] VITALS (8 sets, daily range): BP systolic 104–142; BP diastolic 56–77; PULSE 74–79; RESP 15–20; TEMP 97.9–98.6; O2SAT 92–98
[2024-07-01 07:23] LABS: Calcium 8.9 mg/dL (8.7-10.4); Chloride 104 mmol/L (98-107); Potassium 3.7 mmol/L (3.5-5.1); Sodium 139 mmol/L (136-145)
[2024-07-01 07:24] LABS: Anion Gap 8 (5-15); Carbon Dioxide 27 mmol/L (20-31)
[2024-07-01 07:29] LABS: BUN/Creatinine Ratio 8.8 (10.0-20.0); Blood Urea Nitrogen 5 mg/dL (9-23); Glucose 150 mg/dL (74-106)
[2024-07-01 07:34] LABS: INR 1.39 (0.9-1.15); Partial Thromboplastin Time 29.9 SEC (24.5-34.5); Prothrombin Time 14.3 sec (9.3-11.8)
[2024-07-01] MEDS ORDERED: PROPOFOL 10 MG/ML 20 ML IV ONE (10:54)
[2024-07-01] MEDS ORDERED: fentaNYL CITRATE 100 MCG/2 ML VL ONE (10:54)
--- NOTE | 2024-07-01 11:05 | DVHPN2 ---
Subjective The patient is a 44-year-old female with past medical history of diabetes mellitus and left foot cellulitis who presented to [facility] ED for evaluation of left foot cellulitis. The patient was recently admitted to this facility for left foot cellulitis, return new complaint redness and swelling. Patient was seen and evaluated in the ED, laboratory data shows WBC 18.9, platelets 465, sodium 130, potassium 4.0, BUN 10, creatinine 0.84, GFR 87, glucose 453. Left foot CT revealing extensive fat stranding and phlegmon is seen throughout the superficial left foot suggestive of cellulitis. Patient was started on antibiotic regimen vancomycin, please see medication orders section in the computer. On my assessment, patient denied chest pain, no headache, no dizziness, no shortness breath, no nausea, no vomiting, no fever, no chills. Patient was admitted for further evaluation and medical management. Reviewed: Care Plan, H&P, Labs, Medications, Previous Orders, Radiology Changes from previous H/P or p: No Changes Eyes: No Pain, No Vision change, No Conjunctivae inflammation, No Eyelid inflammation, No Other, No Redness ENT: No Ear pain, No Ear discharge, No Nose pain, No Nose discharge, No Nose congestion, No Mouth pain, No Mouth swelling, No Throat pain, No Throat swelling, No Other Cardiovascular: No Chest Pain, No Palpitations, No Orthopnea, No Paroxysmal Noc. Dyspnea, No Edema, No Lt Headedness, No Other Respiratory: No Cough, No Dry, No Shortness of breath, No SOB with excertion, No Wheezing, No Hemoptysis, No Pleuritic Pain, No Sputum, No Other Gastrointestinal: No Nausea, No Vomiting, No Abdominal Pain, No Diarrhea, No Constipation, No Melena, No Hematochezia, No Other Genitourinary: No Dysuria, No Frequency, No Incontinence, No Hematuria, No Retention, No Other Musculoskeletal: other Skin: No Rash, No Lesions, No Jaundice, No Bruising, No Other Objective Vitals Vital Signs Date Time Temp Pulse Resp B/P (MAP) Pulse Ox O2 Delivery O2 Flow Rate FiO2 07/01/24 08:00 77 18 94 Room Air* 0 21 07/01/24 07:59 98.6 142/77 (98) 98.6 Intake/Output Intake and Output 07/01/24 07:00 Intake Total 1880 ml Output Total 3 ml Balance 1877 ml IV Total 1880 ml Output Urine Total 3 ml # Voids 1 # Bowel Movements 1 Exam DERMATOLOGIC EXAM: - Skin is dry and cool to the touch dry bilaterally. - Nails 1-5 of the bilateral foot are thickened, discolored, dystrophic, and tender to palpate with subungual debris - Hair loss noted to bilateral feet - abscess located on the left 5th digit and lateral foot VASCULAR EXAM: - DP and PT pulses are palpable bilaterally. 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 - Feet are cool to touch compared to lower legs bilaterally. NEUROLOGIC EXAM: - Normal light touch sensation to the superficial peroneal, deep peroneal, sural, saphenous, and tibial nerve branches. - Protective sensation is diminished as tested with a 5.07 10g Walling-Aron bilaterally. MUSCULOSKELETAL EXAM: - No gross deformities - Muscle strength is 5/5 and active motion is pain-free and symmetrical bilaterally - No pain or crepitation with passive range of motion bilaterally to all major pedal joints General Appearance: Alert, Oriented X3 Lungs: Clear to auscultation Cardiovascular: Regular rate Skin: Other Medications Current Medications Medications Dose Ordered Sig/Jerome Route Start Time Stop Time Status Last Admin Dose Admin Vancomycin HCl 0 ml @ 0 mls/hr UD IV 06/26/24 01:00 UNV Vancomycin HCl 0 ml @ 0 mls/hr UD IV 06/26/24 02:15 Insulin Glargine 15 units BID@0700,2200 SC 06/26/24 07:00 06/30/24 21:28 15 UNITS Diagnostic Test (Pha) 1 strip IQ4HR 06/26/24 08:00 07/01/24 08:22 1 STRIP Insulin Human Regular IQ4HR SC 06/26/24 08:00 07/01/24 00:43 6 UNITS Dextrose 50 ml UD PRN IV 06/26/24 06:00 Sodium Chloride 1,000 ml @ 120 mls/hr Q8H20M IV 06/26/24 06:00 06/30/24 23:45 120 MLS/HR Acetaminophen/ Hydrocodone Bitart 1 tab Q4HP PRN PO 06/26/24 06:00 06/30/24 10:19 1 TAB Ondansetron HCl 4 mg Q4HP PRN IV 06/26/24 06:00 Docusate Sodium 100 mg BIDPRN PRN PO 06/26/24 06:00 Enoxaparin Sodium 40 mg DAILY SC 06/26/24 10:00 06/30/24 09:49 40 MG Zinc Sulfate 220 mg DAILY PO 06/26/24 10:00 06/30/24 09:48 220 MG Ascorbic Acid 500 mg BID PO 06/26/24 10:00 06/30/24 21:28 500 MG Acetaminophen 650 mg Q6HP PRN PO 06/26/24 06:00 06/28/24 06:37 650 MG Nitroglycerin 0.4 mg Q5MINP PRN SL 06/26/24 06:00 Morphine Sulfate 2 mg Q30M PRN IV 06/26/24 06:00 Guaifenesin/ Dextromethorphan 10 ml Q6HP PRN PO 06/28/24 14:15 06/28/24 21:23 10 ML Vancomycin HCl 250 ml @ 200 mls/hr Q10H IV 06/30/24 16:15 07/01/24 02:17 200 MLS/HR Laboratory Results Laboratory Tests 06/28/24 13:25 07/01/24 06:34 Chemistry Test 07/01/24 06:34 Calcium Level 8.9 mg/dL (8.7-10.4) Coagulation Test 07/01/24 06:34 Prothrombin Time 14.3 sec (9.3-11.8) H Prothrombin Time INR 1.39 (0.9-1.15) H Activated Partial Thromboplast Time 29.9 SEC (24.5-34.5) Microbiology Microbiology Date/Time Source Procedure Growth Status 06/29/24 12:49 Foot Left Gram Stain - Final Resulted 06/29/24 12:49 Foot Left Anaerobic Culture - Preliminary Resulted 06/29/24 12:49 Foot Left Aerobic Culture - Preliminary Resulted 06/26/24 07:08 Blood Blood Culture - Final NO GROWTH AFTER 5 DAYS OF INCUBATION. Complete Assessment/Plan Assessment/Plan ASSESSMENT: Patient is a 44 year old seen on the floor for 2 day s/p left foot i&d PLAN: - The patients chart was reviewed, clinical findings were discussed with the patient, the etiologies of the conditions were discussed in detail, and a treatment plan was agreed to at this time, with both oral and written instructions provided. - reviewed advanced imaging - discussed plan is to perform an incision and drainage - patient will be NPO at midnight - take her to the OR today - patient will return to the OR at a future date for closure - we will get cultures in the OR - can weightbear as tolerated in postoperative shoe All questions were answered and concerns addressed to the patient's satisfaction. The patient was given the phone number to the clinic and was told how to make contact with the clinic should any concerns or questions arise. Patient understands that if any questions or concerns arise prior to the next appointment, we should be contacted immediately. FOLLOW-UP: Continue to follow while inpatient Plan discussed with: Patient My Orders Orders - KILEY POND DPM Procedure Category Date Status Time Npo After Midnight DIET 06/30/24 Transmitted Dinner Obtain Consent For: ORDERS 06/30/24 Transmitted 14:42 Insert Midline ORDERS 06/30/24 Transmitted 17:16 Problem List: (1) Hyponatremia (2) Cellulitis of foot (3) Diabetic foot infection (4) Hyperglycemia due to diabetes mellitus (5) Cellulitis of left foot (6) Leukocytosis, unspecified (7) Cervical muscle strain (8) Acute headache (9) Left leg cellulitis Date of Service: Jul 01, 2024 Billing Provider: KILEY POND DPM Common Visit Codes: [id number] INP/OBS CARE(MOD) KILEY POND DPM Jul 01, 2024 11:05
[2024-07-01] MEDS: BUPIVACAINE 0.5% P/F INJ 10 ML VIAL ONE (11:15)
[2024-07-01] MEDS ORDERED: ONDANSETRON HCL 4 MG/2 ML VIAL ONE (11:18)
[2024-07-01] MEDS ORDERED: ePHEDrine SULFATE 50 MG/ML AMP ONE (11:18)
--- NOTE | 2024-07-01 11:41 | DVHOP2 ---
Operative Report - 2 Report Details Date: 07/01/24 Preop Diagnosis: 1. Left foot abscess 2. Left foot osteomyelitis 3. Left foot diabetic foot ulcer 4. Left foot cellulitis Postop Diagnosis: Same as preop Surgeon: Kiley Pond MD Anesthesiologist: See anesthesia Anesthesia: General Consent: The patient was informed of the risks and benefits of the procedure. These include but are not limited to complications of anesthesia, postoperative infection, incomplete relief of symptoms, recurrence of symptoms, damage to blood vessels, nerves and tendons, deep venous thrombosis, pulmonary embolism and possible need for repeat surgery in the future. Complications: None Estimated Blood Loss: Minimal Fluids: See anesthesia Findings: Consistent with the diagnosis Indications for Surgery: Worsening left foot wound Name of Procedure Performed 1. Left foot I&D to bone (68512) 2. Left foot rotational flap for closure (42511) 3. Left foot delayed closure (21774) Procedure Details Procedure Details: PRE-PROCEDURE INFORMATION: In the pre-op holding area, the extremity to be operated on was clearly marked and the patient verified correct laterality of the marking. The patient was transferred to the OR table and placed in a supine position. A timeout was performed in which identification of the correct patie nt, procedure, location, and materials was done. The left foot and leg were prepped and draped in normal sterile fashion. DESCRIPTION OF PROCEDURE: Attention was directed to the left foot where area of fluctuance was noted. An incision was made over this area and was deepened through blunt dissection. The incision was deepened to the level of abscess and bone. Care was taken to the dissection to avoid any neurovascular and tendinous structures. The incision was deepened to the bone, and the abscess appeared to be purulent fluid consistent with pus. The cortices of the bone was then removed with [place] an all necrotic tissue. After the abscess was drained, the area was irrigated with 3 L normal saline using cysto tubing. Using a 15. Blade, a rotational flap was performed cutting off excess skin to allow for closure of the wound. A delayed closure was performed with 2-0 nylon. POSTOPERATIVE INFORMATION: The patient tolerated the above noted procedure and anesthesia well and was transferred to the PACU with vital signs stable, and vascular status intact with capillary refill intact to all digits. Patient can return to the floor. Patient will need IV antibiotics for approximately 6 weeks. Patient can weightbear as tolerated in a postoperative shoe. Patient will follow up with me in next week. Condition Good Disposition 2 Still a Patient KILEY POND DPM Jul 01, 2024 11:41
[2024-07-01] MEDS ORDERED: HYDROmorphone HCL 2 MG/ML VL/or syr IV PRN (11:45)
[2024-07-01] MEDS ORDERED: ACETAMINOPHEN IV 1000 MG/100ML (10MG/ML) IV PRN (11:45)
[2024-07-01] MEDS ORDERED: MEPERIDINE HCL (25 MG/ML) 1ML VIAL IV PRN (11:45)
--- NOTE | 2024-07-01 23:16 | DVHPN2 ---
Subjective The patient is seen and examined at bedside. The patient's pain is controlled. No fever or chill. Waiting for another I and D today. Reviewed: Care Plan, H&P, Labs, Medications, Previous Orders, Radiology Changes from previous H/P or p: No Changes Eyes: No Pain, No Vision change, No Conjunctivae inflammation, No Eyelid inflammation, No Other, No Redness ENT: No Ear pain, No Ear discharge, No Nose pain, No Nose discharge, No Nose congestion, No Mouth pain, No Mouth swelling, No Throat pain, No Throat swelling, No Other Cardiovascular: No Chest Pain, No Palpitations, No Orthopnea, No Paroxysmal Noc. Dyspnea, No Edema, No Lt Headedness, No Other Respiratory: No Cough, No Dry, No Shortness of breath, No SOB with excertion, No Wheezing, No Hemoptysis, No Pleuritic Pain, No Sputum, No Other Gastrointestinal: No Nausea, No Vomiting, No Abdominal Pain, No Diarrhea, No Constipation, No Melena, No Hematochezia, No Other Genitourinary: No Dysuria, No Frequency, No Incontinence, No Hematuria, No Retention, No Other Musculoskeletal: other Skin: No Rash, No Lesions, No Jaundice, No Bruising, No Other Objective Vitals Vital Signs Date Time Temp Pulse Resp B/P (MAP) Pulse Ox O2 Delivery O2 Flow Rate FiO2 07/01/24 21:00 98.0 75 18 118/63 (81) 97 98.0 07/01/24 11:40 Room Air 0 07/01/24 08:00 21 Intake/Output Intake and Output 07/01/24 07:00 Intake Total 1880 ml Output Total 3 ml Balance 1877 ml IV Total 1880 ml Output Urine Total 3 ml # Voids 1 # Bowel Movements 1 General Appearance: Alert, Oriented X3 Lungs: Clear to auscultation Cardiovascular: Regular rate Skin: Other Medications Current Medications Medications Dose Ordered Sig/Jerome Route Start Time Stop Time Status Last Admin Dose Admin Vancomycin HCl 0 ml @ 0 mls/hr UD IV 06/26/24 01:00 UNV Vancomycin HCl 0 ml @ 0 mls/hr UD IV 06/26/24 02:15 Insulin Glargine 15 units BID@0700,2200 SC 06/26/24 07:00 07/01/24 21:08 15 UNITS Diagnostic Test (Pha) 1 strip IQ4HR 1/18/25 08:00 07/01/24 20:58 1 STRIP Insulin Human Regular IQ4HR SC 06/26/24 08:00 07/01/24 21:06 6 UNITS Dextrose 50 ml UD PRN IV 06/26/24 06:00 Sodium Chloride 1,000 ml @ 120 mls/hr Q8H20M IV 06/26/24 06:00 07/01/24 15:13 120 MLS/HR Acetaminophen/ Hydrocodone Bitart 1 tab Q4HP PRN PO 06/26/24 06:00 07/01/24 12:37 1 TAB Ondansetron HCl 4 mg Q4HP PRN IV 06/26/24 06:00 Docusate Sodium 100 mg BIDPRN PRN PO 06/26/24 06:00 Enoxaparin Sodium 40 mg DAILY SC 06/26/24 10:00 06/30/24 09:49 40 MG Zinc Sulfate 220 mg DAILY PO 06/26/24 10:00 06/30/24 09:48 220 MG Ascorbic Acid 500 mg BID PO 06/26/24 10:00 07/01/24 21:08 500 MG Acetaminophen 650 mg Q6HP PRN PO 06/26/24 06:00 06/28/24 06:37 650 MG Nitroglycerin 0.4 mg Q5MINP PRN SL 06/26/24 06:00 Morphine Sulfate 2 mg Q30M PRN IV 06/26/24 06:00 Guaifenesin/ Dextromethorphan 10 ml Q6HP PRN PO 06/28/24 14:15 06/28/24 21:23 10 ML Vancomycin HCl 250 ml @ 200 mls/hr Q10H IV 06/30/24 16:15 07/01/24 22:42 200 MLS/HR Laboratory Results Laboratory Tests 06/28/24 13:25 07/01/24 06:34 Chemistry Test 07/01/24 06:34 Calcium Level 8.9 mg/dL (8.7-10.4) Coagulation Test 07/01/24 06:34 Prothrombin Time 14.3 sec (9.3-11.8) H Prothrombin Time INR 1.39 (0.9-1.15) H Activated Partial Thromboplast Time 29.9 SEC (24.5-34.5) Microbiology Microbiology Date/Time Source Procedure Growth Status 1/21/25 12:49 Foot Left Gram Stain - Final Resulted 06/29/24 12:49 Foot Left Anaerobic Culture - Preliminary Resulted 06/29/24 12:49 Foot Left Aerobic Culture - Preliminary Resulted 06/26/24 07:08 Blood Blood Culture - Final NO GROWTH AFTER 5 DAYS OF INCUBATION. Complete Labs and/or images reviewed: Labs reviewed by me Assessment/Plan Assessment/Plan Cellulitis of left foot complicated with abscess with drainage Hyponatremia Diabetic foot infection Hyperglycemia due to diabetes mellitus Continue IV abx vancomycin Continuing with IV pain medication Continuing with [place] for pain control Continuing wound care I and D today.. Plan discussed with: Patient Date of Service: Jul 01, 2024 Billing Provider: MARTHA HERNANDEZ MD Common Visit Codes: [id number] INP/OBS CARE(HIGH) MARTHA HERNANDEZ MD Jul 01, 2024 23:16
[2024-07-02] VITALS (8 sets, daily range): BP systolic 119–144; BP diastolic 55–85; PULSE 70–81; RESP 14–19; TEMP 97.5–98.2; O2SAT 91–98
[2024-07-02] MEDS: ONDANSETRON HCL 4 MG/2 ML VIAL IV ONE (07:47)
[2024-07-02] MEDS: VANCOMYCIN HCL 1000 MG VL ONE (07:47)
--- NOTE | 2024-07-02 23:28 | DVHPN2 ---
Subjective The patient is seen and examined at bedside. The patient's pain is controlled. No fever or chill. Status post I and D yesterday. Reviewed: Care Plan, H&P, Labs, Medications, Previous Orders, Radiology Changes from previous H/P or p: No Changes Eyes: No Pain, No Vision change, No Conjunctivae inflammation, No Eyelid inflammation, No Other, No Redness ENT: No Ear pain, No Ear discharge, No Nose pain, No Nose discharge, No Nose congestion, No Mouth pain, No Mouth swelling, No Throat pain, No Throat swelling, No Other Cardiovascular: No Chest Pain, No Palpitations, No Orthopnea, No Paroxysmal Noc. Dyspnea, No Edema, No Lt Headedness, No Other Respiratory: No Cough, No Dry, No Shortness of breath, No SOB with excertion, No Wheezing, No Hemoptysis, No Pleuritic Pain, No Sputum, No Other Gastrointestinal: No Nausea, No Vomiting, No Abdominal Pain, No Diarrhea, No Constipation, No Melena, No Hematochezia, No Other Genitourinary: No Dysuria, No Frequency, No Incontinence, No Hematuria, No Retention, No Other Musculoskeletal: other Skin: No Rash, No Lesions, No Jaundice, No Bruising, No Other Objective Vitals Vital Signs Date Time Temp Pulse Resp B/P (MAP) Pulse Ox O2 Delivery O2 Flow Rate FiO2 07/02/24 20:55 98.1 74 14 144/85 (104) 98 98.1 07/02/24 08:00 Room Air* 0 21 Intake/Output Intake and Output 07/02/24 07:00 Intake Total 3435 ml Output Total 700 ml Balance 2735 ml Intake Oral 1075 ml IV Total 2360 ml Output Urine Total 700 ml General Appearance: Alert, Oriented X3 Lungs: Clear to auscultation Cardiovascular: Regular rate Skin: Other Medications Current Medications Medications Dose Ordered Sig/Jerome Route Start Time Stop Time Status Last Admin Dose Admin Vancomycin HCl 0 ml @ 0 mls/hr UD IV 06/26/24 01:00 UNV Vancomycin HCl 0 ml @ 0 mls/hr UD IV 06/26/24 02:15 Insulin Glargine 15 units BID@0700,2200 SC 06/26/24 07:00 07/02/24 21:25 15 UNITS Diagnostic Test (Pha) 1 strip IQ4HR 06/26/24 08:00 07/02/24 21:26 1 STRIP Insulin Human Regular IQ4HR SC 06/26/24 08:00 07/02/24 21:25 6 UNITS Dextrose 50 ml UD PRN IV 06/26/24 06:00 Sodium Chloride 1,000 ml @ 120 mls/hr Q8H20M IV 06/26/24 06:00 07/02/24 20:20 120 MLS/HR Acetaminophen/ Hydrocodone Bitart 1 tab Q4HP PRN PO 06/26/24 06:00 07/02/24 08:53 1 TAB Ondansetron HCl 4 mg Q4HP PRN IV 06/26/24 06:00 Docusate Sodium 100 mg BIDPRN PRN PO 06/26/24 06:00 Enoxaparin Sodium 40 mg DAILY SC 06/26/24 10:00 07/02/24 09:03 40 MG Zinc Sulfate 220 mg DAILY PO 06/26/24 10:00 07/02/24 09:02 220 MG Ascorbic Acid 500 mg BID PO 06/26/24 10:00 07/02/24 21:25 500 MG Acetaminophen 650 mg Q6HP PRN PO 06/26/24 06:00 06/28/24 06:37 650 MG Nitroglycerin 0.4 mg Q5MINP PRN SL 06/26/24 06:00 Morphine Sulfate 2 mg Q30M PRN IV 06/26/24 06:00 Guaifenesin/ Dextromethorphan 10 ml Q6HP PRN PO 06/28/24 14:15 06/28/24 21:23 10 ML Vancomycin HCl 250 ml @ 200 mls/hr Q10H IV 06/30/24 16:15 07/02/24 17:51 200 MLS/HR Laboratory Results Laboratory Tests 06/28/24 13:25 07/01/24 06:34 Microbiology Microbiology Date/Time Source Procedure Growth Status 06/29/24 12:49 Foot Left Gram Stain - Final Resulted 06/29/24 12:49 Foot Left Anaerobic Culture - Preliminary Resulted 06/29/24 12:49 Foot Left Aerobic Culture - Preliminary Resulted 06/26/24 07:08 Blood Blood Culture - Final NO GROWTH AFTER 5 DAYS OF INCUBATION. 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 Plan discussed with: Patient Date of Service: Jul 02, 2024 Billing Provider: MARTHA HERNANDEZ MD Common Visit Codes: [id number] INP/OBS CARE(HIGH) MARTHA HERNANDEZ MD Jul 02, 2024 23:28
[2024-07-03] VITALS (8 sets, daily range): BP systolic 135–154; BP diastolic 61–86; PULSE 71–95; RESP 16–20; TEMP 97.4–98.2; O2SAT 93–96
--- NOTE | 2024-07-03 22:50 | DVHPN2 ---
Subjective The patient is seen and examined at bedside. The patient's pain is controlled. No fever or chill. Status post I and D. Reviewed: Care Plan, H&P, Labs, Medications, Previous Orders, Radiology Changes from previous H/P or p: No Changes Eyes: No Pain, No Vision change, No Conjunctivae inflammation, No Eyelid inflammation, No Other, No Redness ENT: No Ear pain, No Ear discharge, No Nose pain, No Nose discharge, No Nose congestion, No Mouth pain, No Mouth swelling, No Throat pain, No Throat swelling, No Other Cardiovascular: No Chest Pain, No Palpitations, No Orthopnea, No Paroxysmal Noc. Dyspnea, No Edema, No Lt Headedness, No Other Respiratory: No Cough, No Dry, No Shortness of breath, No SOB with excertion, No Wheezing, No Hemoptysis, No Pleuritic Pain, No Sputum, No Other Gastrointestinal: No Nausea, No Vomiting, No Abdominal Pain, No Diarrhea, No Constipation, No Melena, No Hematochezia, No Other Genitourinary: No Dysuria, No Frequency, No Incontinence, No Hematuria, No Retention, No Other Musculoskeletal: other Skin: No Rash, No Lesions, No Jaundice, No Bruising, No Other Objective Vitals Vital Signs Date Time Temp Pulse Resp B/P (MAP) Pulse Ox O2 Delivery O2 Flow Rate FiO2 07/03/24 21:00 98.1 76 20 143/76 (98) 96 98.1 07/03/24 08:00 Room Air* 0 21 Intake/Output Intake and Output 07/03/24 07:00 Intake Total 4790 ml Balance 4790 ml Intake Oral 1800 ml IV Total 2990 ml # Voids 4 General Appearance: Alert, Oriented X3 Lungs: Clear to auscultation Cardiovascular: Regular rate Skin: Other Medications Current Medications Medications Dose Ordered Sig/Jerome Route Start Time Stop Time Status Last Admin Dose Admin Vancomycin HCl 0 ml @ 0 mls/hr UD IV 06/26/24 01:00 UNV Vancomycin HCl 0 ml @ 0 mls/hr UD IV 06/26/24 02:15 Insulin Glargine 15 units BID@0700,2200 SC 06/26/24 07:00 07/03/24 21:21 15 UNITS Diagnostic Test (Pha) 1 strip IQ4HR 06/26/24 08:00 07/03/24 21:13 1 STRIP Insulin Human Regular IQ4HR SC 06/26/24 08:00 07/03/24 21:21 9 UNITS Dextrose 50 ml UD PRN IV 06/26/24 06:00 Sodium Chloride 1,000 ml @ 120 mls/hr Q8H20M IV 06/26/24 06:00 07/03/24 13:29 120 MLS/HR Acetaminophen/ Hydrocodone Bitart 1 tab Q4HP PRN PO 06/26/24 06:00 07/02/24 08:53 1 TAB Ondansetron HCl 4 mg Q4HP PRN IV 06/26/24 06:00 Docusate Sodium 100 mg BIDPRN PRN PO 06/26/24 06:00 Enoxaparin Sodium 40 mg DAILY SC 06/26/24 10:00 07/03/24 10:02 40 MG Zinc Sulfate 220 mg DAILY PO 06/26/24 10:00 07/03/24 10:01 220 MG Ascorbic Acid 500 mg BID PO 06/26/24 10:00 07/03/24 21:22 500 MG Acetaminophen 650 mg Q6HP PRN PO 06/26/24 06:00 06/28/24 06:37 650 MG Nitroglycerin 0.4 mg Q5MINP PRN SL 06/26/24 06:00 Morphine Sulfate 2 mg Q30M PRN IV 06/26/24 06:00 Guaifenesin/ Dextromethorphan 10 ml Q6HP PRN PO 06/28/24 14:15 06/28/24 21:23 10 ML Vancomycin HCl 250 ml @ 200 mls/hr Q10H IV 06/30/24 16:15 07/03/24 14:32 200 MLS/HR Laboratory Results Laboratory Tests 06/28/24 13:25 07/01/24 06:34 Microbiology Microbiology Date/Time Source Procedure Growth Status 06/29/24 12:49 Foot Left Gram Stain - Final Resulted 06/29/24 12:49 Foot Left Anaerobic Culture - Preliminary Resulted 06/29/24 12:49 Foot Left Aerobic Culture - Preliminary Resulted 06/26/24 07:08 Blood Blood Culture - Final NO GROWTH AFTER 5 DAYS OF INCUBATION. Complete Labs and/or images reviewed: Labs reviewed by me Assessment/Plan Assessment/Plan Cellulitis of left foot complicated with abscess with drainage Hyponatremia Diabetic foot infection Hyperglycemia due to diabetes mellitus Continue IV abx vancomycin Will switch midline to PICC line Abx for 6 weeks per store coordinator. Waiting for culture. Continuing with IV pain medication Continuing with [place] for pain control Continuing wound care I and D done, waiting for clearance from store coordinator to d/c patient home. Plan discussed with: Patient My Orders Orders - MARTHA HERNANDEZ MD Procedure Category Date Status Time * Picc Line Consult CONS 07/03/24 Transmitted 14:25 Date of Service: Jul 03, 2024 Billing Provider: MARTHA HERNANDEZ MD Common Visit Codes: [id number] INP/OBS CARE(HIGH) MARTHA HERNANDEZ MD Jul 03, 2024 22:50
[2024-07-04] VITALS (8 sets, daily range): BP systolic 117–155; BP diastolic 60–95; PULSE 67–76; RESP 16–19; TEMP 97.6–98.4; O2SAT 95–96
--- NOTE | 2024-07-04 19:55 | DVHPN2 ---
Subjective The patient is seen and examined at bedside. The patient's pain is controlled. No fever or chill. Reviewed: Care Plan, H&P, Labs, Medications, Previous Orders, Radiology Changes from previous H/P or p: No Changes Eyes: No Pain, No Vision change, No Conjunctivae inflammation, No Eyelid inflammation, No Other, No Redness ENT: No Ear pain, No Ear discharge, No Nose pain, No Nose discharge, No Nose congestion, No Mouth pain, No Mouth swelling, No Throat pain, No Throat swelling, No Other Cardiovascular: No Chest Pain, No Palpitations, No Orthopnea, No Paroxysmal Noc. Dyspnea, No Edema, No Lt Headedness, No Other Respiratory: No Cough, No Dry, No Shortness of breath, No SOB with excertion, No Wheezing, No Hemoptysis, No Pleuritic Pain, No Sputum, No Other Gastrointestinal: No Nausea, No Vomiting, No Abdominal Pain, No Diarrhea, No Constipation, No Melena, No Hematochezia, No Other Genitourinary: No Dysuria, No Frequency, No Incontinence, No Hematuria, No Retention, No Other Musculoskeletal: other Skin: No Rash, No Lesions, No Jaundice, No Bruising, No Other Objective Vitals Vital Signs Date Time Temp Pulse Resp B/P (MAP) Pulse Ox O2 Delivery O2 Flow Rate FiO2 07/04/24 17:19 97.9 72 16 155/87 (109) 96 97.9 07/04/24 07:45 Room Air* 0 21 Intake/Output Intake and Output 07/04/24 07:00 Intake Total 4040 ml Balance 4040 ml Intake Oral 1780 ml IV Total 2260 ml # Voids 10 # Bowel Movements 1 General Appearance: Alert, Oriented X3 Lungs: Clear to auscultation Cardiovascular: Regular rate, Normal S1, Normal S2, No murmurs, Gallops, Rubs Abdomen: Normal bowel sounds, Soft, No tenderness Genitourinary: Tenderness Skin: Other Psych/Mental Status: Mental status NL Medications Current Medications Medications Dose Ordered Sig/Jerome Route Start Time Stop Time Status Last Admin Dose Admin Vancomycin HCl 0 ml @ 0 mls/hr UD IV 06/26/24 01:00 UNV Vancomycin HCl 0 ml @ 0 mls/hr UD IV 06/26/24 02:15 Insulin Glargine 15 units BID@0700,2200 SC 06/26/24 07:00 07/04/24 05:55 15 UNITS Diagnostic Test (Pha) 1 strip IQ4HR 06/26/24 08:00 07/04/24 16:20 1 STRIP Insulin Human Regular IQ4HR SC 06/26/24 08:00 07/04/24 16:21 2 UNITS Dextrose 50 ml UD PRN IV 06/26/24 06:00 Sodium Chloride 1,000 ml @ 120 mls/hr Q8H20M IV 06/26/24 06:00 07/04/24 18:26 120 MLS/HR Acetaminophen/ Hydrocodone Bitart 1 tab Q4HP PRN PO 06/26/24 06:00 07/02/24 08:53 1 TAB Ondansetron HCl 4 mg Q4HP PRN IV 06/26/24 06:00 Docusate Sodium 100 mg BIDPRN PRN PO 06/26/24 06:00 Enoxaparin Sodium 40 mg DAILY SC 06/26/24 10:00 07/04/24 08:47 40 MG Zinc Sulfate 220 mg DAILY PO 06/26/24 10:00 07/04/24 08:47 220 MG Ascorbic Acid 500 mg BID PO 06/26/24 10:00 07/04/24 08:47 500 MG Acetaminophen 650 mg Q6HP PRN PO 06/26/24 06:00 07/04/24 08:53 650 MG Nitroglycerin 0.4 mg Q5MINP PRN SL 06/26/24 06:00 Morphine Sulfate 2 mg Q30M PRN IV 06/26/24 06:00 Guaifenesin/ Dextromethorphan 10 ml Q6HP PRN PO 06/28/24 14:15 06/28/24 21:23 10 ML Vancomycin HCl 250 ml @ 200 mls/hr Q10H IV 06/30/24 16:15 07/04/24 10:01 200 MLS/HR Laboratory Results Laboratory Tests 06/28/24 13:25 07/01/24 06:34 Microbiology Microbiology Date/Time Source Procedure Growth Status 06/29/24 12:49 Foot Left Gram Stain - Final Resulted 06/29/24 12:49 Foot Left Anaerobic Culture - Preliminary Resulted 06/29/24 12:49 Foot Left Aerobic Culture - Preliminary Resulted 06/26/24 07:08 Blood Blood Culture - Final NO GROWTH AFTER 5 DAYS OF INCUBATION. Complete Labs and/or images reviewed: Labs reviewed by me Assessment/Plan Assessment/Plan Cellulitis of left foot complicated with abscess with drainage Hyponatremia Diabetic foot infection Hyperglycemia due to diabetes mellitus Continue IV abx vancomycin Continuing with IV pain medication PICC line change. Continuing with [place] for pain control Continuing wound care Discharge planning. Plan discussed with: Patient My Orders Orders - MARTHA HERNANDEZ MD Procedure Category Date Status Time Prothrombin Time W/ LAB 07/05/24 Verified INR 04:00 Date of Service: Jul 04, 2024 Billing Provider: MARTHA HERNANDEZ MD Common Visit Codes: [id number] INP/OBS CARE(HIGH) MATRHA HERNANDEZ MD Jul 04, 2024 19:55
[2024-07-05] VITALS (7 sets, daily range): BP systolic 118–145; BP diastolic 60–86; PULSE 61–82; RESP 17–21; TEMP 97.7–98.2; O2SAT 96–99
[2024-07-05 06:54] LABS: Calcium 9.5 mg/dL (8.7-10.4); Chloride 105 mmol/L (98-107); Sodium 141 mmol/L (136-145)
[2024-07-05 06:55] LABS: Anion Gap 7 (5-15); Basophils # (auto) 0 10 ^3/uL (0-0.2); Carbon Dioxide 29 mmol/L (20-31); Eosinophils # (auto) 0.2 10 ^3/uL (0-0.8); Hemoglobin 9.9 g/dL (12.2-16.2); Mean Corpuscular Volume 83.4 fL (80.0-100.0); Monocytes # (auto) 0.5 10 ^3/uL (0-1.3)
[2024-07-05 06:57] LABS: Basophils % (auto) 0.4 % (0.0-2.0); Eosinophils % (auto) 2.2 % (0.0-7.0); Hematocrit 29.2 % (36.0-46.0); INR 1.35 (0.9-1.15); Lymphocytes # (auto) 2.3 10 ^3/uL (0.4-5.4); Lymphocytes % (auto) 31.2 % (10.0-50.0); Mean Corpuscular Hemoglobin 28.2 pg (28.0-32.0); Mean Corpuscular Hgb Conc. 33.8 g/dL (32.0-36.0); Monocytes % (auto) 7.2 % (0.0-12.0); Neutrophils # (auto) 4.3 10 ^3/uL (1.6-8.6); Nucleated Red Blood Cells % 0.1 %; Platelet Count (auto) 507 10^3/uL (140-450); Prothrombin Time 13.9 sec (9.3-11.8); Red Blood Cells 3.49 10^6/uL (4.0-5.20); Red Cell Distribution Width 13.5 % (11.8-14.3); White Blood Cell 7.3 10^3/uL (4.4-10.8)
[2024-07-05 07:00] LABS: BUN/Creatinine Ratio 16.9 (10.0-20.0); Blood Urea Nitrogen 10 mg/dL (9-23)
[2024-07-05 07:05] LABS: Glucose 149 mg/dL (74-106)
[2024-07-05] MEDS: VANCOMYCIN 1.25GM/250ML 250 ML IV SCH (08:06)
--- NOTE | 2024-07-05 11:40 | DVHPN2 ---
Subjective The patient is seen and examined at bedside. The patient's pain is controlled. No fever or chill. Reviewed: Care Plan, H&P, Labs, Medications, Previous Orders, Radiology Changes from previous H/P or p: No Changes Eyes: No Pain, No Vision change, No Conjunctivae inflammation, No Eyelid inflammation, No Other, No Redness ENT: No Ear pain, No Ear discharge, No Nose pain, No Nose discharge, No Nose congestion, No Mouth pain, No Mouth swelling, No Throat pain, No Throat swelling, No Other Cardiovascular: No Chest Pain, No Palpitations, No Orthopnea, No Paroxysmal Noc. Dyspnea, No Edema, No Lt Headedness, No Other Respiratory: No Cough, No Dry, No Shortness of breath, No SOB with excertion, No Wheezing, No Hemoptysis, No Pleuritic Pain, No Sputum, No Other Gastrointestinal: No Nausea, No Vomiting, No Abdominal Pain, No Diarrhea, No Constipation, No Melena, No Hematochezia, No Other Genitourinary: No Dysuria, No Frequency, No Incontinence, No Hematuria, No Retention, No Other Musculoskeletal: other Skin: No Rash, No Lesions, No Jaundice, No Bruising, No Other Objective Vitals Vital Signs Date Time Temp Pulse Resp B/P (MAP) Pulse Ox O2 Delivery O2 Flow Rate FiO2 07/05/24 09:00 98.0 71 21 133/63 (86) 96 98.0 07/05/24 07:45 Room Air* 0 21 Intake/Output Intake and Output 07/05/24 07:00 Intake Total 6110 ml Balance 6110 ml Intake Oral 3300 ml IV Total 2810 ml # Voids 6 General Appearance: Alert, Oriented X3 Lungs: Clear to auscultation Cardiovascular: Regular rate, Normal S1, Normal S2, No murmurs, Gallops, Rubs Abdomen: Normal bowel sounds, Soft, No tenderness Genitourinary: Tenderness Skin: Other Psych/Mental Status: Mental status NL Medications Current Medications Medications Dose Ordered Sig/Jerome Route Start Time Stop Time Status Last Admin Dose Admin Vancomycin HCl 0 ml @ 0 mls/hr UD IV 06/26/24 01:00 UNV Vancomycin HCl 0 ml @ 0 mls/hr UD IV 06/26/24 02:15 Insulin Glargine 15 units BID@0700,2200 SC 06/26/24 07:00 07/05/24 05:41 15 UNITS Diagnostic Test (Pha) 1 strip IQ4HR 06/26/24 08:00 07/05/24 08:05 1 STRIP Insulin Human Regular IQ4HR SC 06/26/24 08:00 07/05/24 08:08 2 UNITS Dextrose 50 ml UD PRN IV 06/26/24 06:00 Sodium Chloride 1,000 ml @ 120 mls/hr Q8H20M IV 06/26/24 06:00 07/05/24 03:37 120 MLS/HR Ondansetron HCl 4 mg Q4HP PRN IV 06/26/24 06:00 Docusate Sodium 100 mg BIDPRN PRN PO 06/26/24 06:00 Enoxaparin Sodium 40 mg DAILY SC 06/26/24 10:00 07/05/24 09:06 40 MG Zinc Sulfate 220 mg DAILY PO 06/26/24 10:00 07/05/24 09:05 220 MG Ascorbic Acid 500 mg BID PO 06/26/24 10:00 07/05/24 09:05 500 MG Acetaminophen 650 mg Q6HP PRN PO 06/26/24 06:00 07/04/24 08:53 650 MG Nitroglycerin 0.4 mg Q5MINP PRN SL 06/26/24 06:00 Guaifenesin/ Dextromethorphan 10 ml Q6HP PRN PO 06/28/24 14:15 06/28/24 21:23 10 ML Vancomycin HCl 250 ml @ 200 mls/hr Q10H IV 07/05/24 08:00 07/05/24 08:06 200 MLS/HR Laboratory Results Laboratory Tests 07/05/24 06:05 Chemistry Test 07/05/24 06:05 Calcium Level 9.5 mg/dL (8.7-10.4) Coagulation Test 07/05/24 06:05 Prothrombin Time 13.9 sec (9.3-11.8) H Prothrombin Time INR 1.35 (0.9-1.15) H Microbiology Microbiology Date/Time Source Procedure Growth Status 06/29/24 12:49 Foot Left Gram Stain - Final Resulted 06/29/24 12:49 Foot Left Anaerobic Culture - Preliminary Resulted 06/29/24 12:49 Foot Left Aerobic Culture - Preliminary Resulted 06/26/24 07:08 Blood Blood Culture - Final NO GROWTH AFTER 5 DAYS OF INCUBATION. Complete Labs and/or images reviewed: Labs reviewed by me Assessment/Plan Assessment/Plan Cellulitis of left foot complicated with abscess with drainage Hyponatremia Diabetic foot infection Hyperglycemia due to diabetes mellitus Continue IV abx vancomycin Continuing with IV pain medication PICC line change. Continuing with [place] for pain control Continuing wound care Discharge planning. Plan discussed with: Patient Date of Service: Jul 05, 2024 Billing Provider: MARTHA HERNANDEZ MD Common Visit Codes: [id number] INP/OBS CARE(HIGH) MARTHA HERNANDEZ MD Jul 05, 2024 11:40
[2024-07-05] MEDS ORDERED: DEXTROSE (50%) 50ML SYRG IV PRN (12:30)
[2024-07-05] MEDS: ACCU-CHEK COMFORT CURVE STRIP VI SCH (17:54)
[2024-07-05] MEDS: InsuLIN REG 1unit/0.01ml Soln (100units/ml) SC SCH (18:00)
[2024-07-06] VITALS (9 sets, daily range): BP systolic 115–147; BP diastolic 60–88; PULSE 64–81; RESP 17–20; TEMP 97.7–98.7; O2SAT 95–97
[2024-07-06 07:59] LABS: Basophils # (auto) 0 10 ^3/uL (0-0.2); Basophils % (auto) 0.5 % (0.0-2.0); Eosinophils # (auto) 0.1 10 ^3/uL (0-0.8); Eosinophils % (auto) 1.7 % (0.0-7.0); Hematocrit 31.8 % (36.0-46.0); Hemoglobin 10.8 g/dL (12.2-16.2); Lymphocytes % (auto) 26.4 % (10.0-50.0); Mean Corpuscular Hemoglobin 28.1 pg (28.0-32.0); Mean Corpuscular Hgb Conc. 33.9 g/dL (32.0-36.0); Mean Corpuscular Volume 82.8 fL (80.0-100.0); Monocytes # (auto) 0.5 10 ^3/uL (0-1.3); Monocytes % (auto) 6.3 % (0.0-12.0); Neutrophils # (auto) 4.9 10 ^3/uL (1.6-8.6); Neutrophils % (auto) 65.1 % (37.0-80.0); Nucleated Red Blood Cells % 0.1 %; Red Blood Cells 3.84 10^6/uL (4.0-5.20); Red Cell Distribution Width 13.9 % (11.8-14.3); White Blood Cell 7.5 10^3/uL (4.4-10.8)
[2024-07-06 08:45] LABS: Platelet Count (auto) 547 10^3/uL (140-450)
--- NOTE | 2024-07-06 10:45 | DVHDS2 ---
Discharge Summary Date of Admission Jun 26, 2024 at 05:53 Date of Discharge: Jul 06, 2024 Admitting Diagnosis Cellulitis of left foot complicated with abscess with drainage Hyponatremia Diabetic foot infection Hyperglycemia due to diabetes mellitus Labs/Diagnostic Data: Laboratory Results Test 07/06/24 06:24 07/06/24 06:18 07/05/24 06:05 07/01/24 06:34 White Blood Count 7.5 10^3/uL (4.4-10.8) Red Blood Count 3.84 10^6/uL (4.0-5.20) Hemoglobin 10.8 g/dL (12.2-16.2) Hematocrit 31.8 % (36.0-46.0) Mean Corpuscular Volume 82.8 fL (80.0-100.0) Mean Corpuscular Hemoglobin 28.1 pg (28.0-32.0) Mean Corpuscular Hemoglobin Concent 33.9 g/dL (32.0-36.0) Red Cell Distribution Width 13.9 % (11.8-14.3) Platelet Count 547 10^3/uL (140-450) Mean Platelet Volume 6.8 fL (6.9-10.8) Neutrophils (%) (Auto) 65.1 % (37.0-80.0) Lymphocytes (%) (Auto) 26.4 % (10.0-50.0) Monocytes (%) (Auto) 6.3 % (0.0-12.0) Eosinophils (%) (Auto) 1.7 % (0.0-7.0) Basophils (%) (Auto) 0.5 % (0.0-2.0) Neutrophils # (Auto) 4.9 10 ^3/uL (1.6-8.6) Lymphocytes # (Auto) 2.0 10 ^3/uL (0.4-5.4) Monocytes # (Auto) 0.5 10 ^3/uL (0-1.3) Eosinophils # (Auto) 0.1 10 ^3/uL (0-0.8) Basophils # (Auto) 0 10 ^3/uL (0-0.2) Nucleated Red Blood Cells 0.1 % Creatinine 0.57 mg/dL (0.550-1.02) Glomerular Filtration Rate Calc 113 mL/min (>90) POC Glucose 141 mg/dl (70-106) Prothrombin Time 13.9 sec (9.3-11.8) Prothrombin Time INR 1.35 (0.9-1.15) Sodium Level 141 mmol/L (136-145) Potassium Level 4.0 mmol/L (3.5-5.1) Chloride Level 105 mmol/L (98-107) Carbon Dioxide Level 29 mmol/L (20-31) Anion Gap 7 (5-15) Blood Urea Nitrogen 10 mg/dL (9-23) BUN/Creatinine Ratio 16.9 (10.0-20.0) Serum Glucose 149 mg/dL (74-106) Calcium Level 9.5 mg/dL (8.7-10.4) Vancomycin Level Trough 16.3 ug/mL (5-10) Activated Partial Thromboplast Time 29.9 SEC (24.5-34.5) Beta HCG, Quantitative 3.1 mIU/mL (1.5-4.2) Test 06/30/24 10:44 06/27/24 05:56 06/26/24 01:22 Random Vancomycin Level 10.7 ug/mL (5-10) Total Bilirubin 0.5 mg/dL (0.2-1.0) Aspartate Amino Transferase (AST) < 8 U/L (13-40) Alanine Aminotransferase (ALT) 11 U/L (7-40) Alkaline Phosphatase 103 U/L (46-116) Total Protein 7.1 g/dL (5.7-8.2) Albumin 3.6 g/dL (3.2-4.8) Lactic Acid Level 1.5 mmol/L (0.4-2.0) Other Laboratory Tests 07/06/24 06:24 07/05/24 06:05 Brief Hx & Hospital Course: This is a 44 years old female with past medical history diabetes and left foot cellulitis came to emergency department because of severe pain in drainage from the toe. The patient apparently was recently admitted to [facility] for left foot cellulitis. The patient has CT scan of the toe showed: Extensive fat stranding and phlegmon is seen throughout the superficial left foot suggestive of cellulitis. No drainable abscess identified. No osseous destructive changes. The patient has a MRI showed osteomyelitis left fifth MTP joint. Hotel Services Sales Representative see the patient and did an I and D twice and also has a rotation flap done. The patient will need IV antibiotic for six weeks. Her culture showed staph intermedius sensitive to Levaquin. I will discharge the patient home with six weeks on IV antibiotic Levaquin 500 mg IV q.day. also we will arrange home health for wound care. The patient stated that she does not want PICC line in do not want to have IV antibiotic because she had dogs in children. I explained to her that with the osteomyelitis her wound need to treat appropriately for six weeks on IV antibiotics. Also she can have the IV antibiotic from couple hours and then she can wrap the IV access and not going to interfere with her daily life. Follow up with primary care physician 1-2 weeks. Activity as tolerated. Diet per home diet. Recommend low carbs low- salt low-cholesterol diet. Follow up with Dr. Alvarenga, senior games technician per schedule. Physical exam: HEENT: Normocephalic atraumatic pupils equal react to light and accommodation. Extraocular muscles intact, conjunctiva pink, oropharynx moist, no thrush, no exudate. Lymphatic: No lymphadenopathy Cardiovascular exam: S1, S2 was heard. No murmurs, rubs, gallops Lung: Clear on auscultation bilaterally, no wheeze, rale, rhonchi. GI: Abdominal soft, nondistended, nontenderness, positive bowel sounds. Extremity: No crepitus, cyanosis, edema. Pedal pulses present bilateral. Full range of motion. Skin: Normal turgor, no rash. Psych: Alert, oriented x3. Neurology: No focal deficits, cranial nerve II to XII grossly intact. This medical document was created using an electronic medical record system with M[employer] flurency direct computerized dictation system. Although this document has been carefully reviewed, there may still be some phonetic and typographical errors. These areas are purely typographical due to imperfections of the software programs, and do not reflect any compromise in the patient's medical care. Condition at Discharge: Stable Final Diagnosis/Problems List Cellulitis of left foot complicated with abscess with drainage Hyponatremia Diabetic foot infection Hyperglycemia due to diabetes mellitus Left foot osteomyelitis Discharge Disposition: Still a Patient Discharge Instruct/Medications Diet: Consistent carbohydrate, Cardiac 2g Na,low cholest Activity: Light activity Follow Up/Referral: PCP 1-2 weeks Hotel Services Sales Representative per schedule Medications: See medication list Discharge Statement: "Patient was advised to return to the ER or call 911 if any headaches, dizziness, shortness of breath, chest pain, abdominal pain, bleeding, fevers, or worsening of medical condition. Patient was counseled about treatment plan, medications, possible side effects, patientverbalized understanding. All questions were answered to the best of my ability. This discharge took greater then 30 minutes in planning, reviewing documentation, counseling the patient, and discussing with other team members." ASSESSMENT ASSESSMENT Assessment Same as preop Date of Service: Jul 06, 2024 Billing Provider: MARTHA HERNANDEZ MD Common Visit Codes: 33230-CIM/OBS DISCH DAY >30min MARTHA HERNANDEZ MD Jul 06, 2024 10:45
[2024-07-06] MEDS ORDERED: METF-372 PO (11:23)
--- NOTE | 2024-07-06 18:04 | MEDREC ---
[facility] ASP Intervention Section I [facility] ASP Intervention: Deescalate AB based on CS (PLEASE CONSIDER DE-ESCALATION BASED ON CULTURE RESULTS) ERIN TURPIN PHARMACIST Jul 06, 2024 18:04
[2024-07-07 01:00] VITALS: BP 131/77; PULSE 71; RESP 20; TEMP 98.3; O2SAT 95
[2024-07-07 05:00] VITALS: BP 113/55; PULSE 70; RESP 20; TEMP 97.6; O2SAT 98
[2024-07-07 07:42] LABS: Basophils # (auto) 0 10 ^3/uL (0-0.2); Basophils % (auto) 0.5 % (0.0-2.0); Eosinophils # (auto) 0.1 10 ^3/uL (0-0.8); Hemoglobin 10.9 g/dL (12.2-16.2); Lymphocytes # (auto) 2.1 10 ^3/uL (0.4-5.4); Monocytes # (auto) 0.4 10 ^3/uL (0-1.3); Nucleated Red Blood Cells % 0.1 %
[2024-07-07 07:44] LABS: Eosinophils % (auto) 1.7 % (0.0-7.0); Hematocrit 32.5 % (36.0-46.0); Lymphocytes % (auto) 26.7 % (10.0-50.0); Mean Corpuscular Hemoglobin 28.1 pg (28.0-32.0); Mean Corpuscular Hgb Conc. 33.7 g/dL (32.0-36.0); Mean Corpuscular Volume 83.3 fL (80.0-100.0); Monocytes % (auto) 5.5 % (0.0-12.0); Neutrophils # (auto) 5.1 10 ^3/uL (1.6-8.6); Neutrophils % (auto) 65.6 % (37.0-80.0); Platelet Count (auto) 526 10^3/uL (140-450); White Blood Cell 7.8 10^3/uL (4.4-10.8)
[2024-07-07 08:00] VITALS: PULSE 84; RESP 17; O2SAT 95
[2024-07-07 09:00] VITALS: BP 133/67; PULSE 66; RESP 16; TEMP 97.6; O2SAT 97
[2024-07-07] MEDS: levoFLOXacin 500MG 100 ML IV SCH (10:00)
--- NOTE | 2024-07-07 10:31 | DVHPN2 ---
Subjective The patient is seen and examined at bedside. The patient's pain is controlled. No fever or chill. Reviewed: Care Plan, H&P, Labs, Medications, Previous Orders, Radiology Changes from previous H/P or p: No Changes Eyes: No Pain, No Vision change, No Conjunctivae inflammation, No Eyelid inflammation, No Other, No Redness ENT: No Ear pain, No Ear discharge, No Nose pain, No Nose discharge, No Nose congestion, No Mouth pain, No Mouth swelling, No Throat pain, No Throat swelling, No Other Cardiovascular: No Chest Pain, No Palpitations, No Orthopnea, No Paroxysmal Noc. Dyspnea, No Edema, No Lt Headedness, No Other Respiratory: No Cough, No Dry, No Shortness of breath, No SOB with excertion, No Wheezing, No Hemoptysis, No Pleuritic Pain, No Sputum, No Other Gastrointestinal: No Nausea, No Vomiting, No Abdominal Pain, No Diarrhea, No Constipation, No Melena, No Hematochezia, No Other Genitourinary: No Dysuria, No Frequency, No Incontinence, No Hematuria, No Retention, No Other Musculoskeletal: other Skin: No Rash, No Lesions, No Jaundice, No Bruising, No Other Objective Vitals Vital Signs Date Time Temp Pulse Resp B/P (MAP) Pulse Ox O2 Delivery O2 Flow Rate FiO2 07/07/24 09:00 97.6 66 16 133/67 (89) 97 97.6 07/06/24 20:00 Room Air* 0 21 Intake/Output Intake and Output 07/07/24 07:00 Intake Total 2700 ml Balance 2700 ml Intake Oral 2200 ml IV Total 500 ml # Voids 7 General Appearance: Alert, Oriented X3 Lungs: Clear to auscultation Cardiovascular: Regular rate, Normal S1, Normal S2, No murmurs, Gallops, Rubs Abdomen: Normal bowel sounds, Soft, No tenderness Genitourinary: Tenderness Skin: Other Psych/Mental Status: Mental status NL Medications Current Medications Medications Dose Ordered Sig/Jerome Route Start Time Stop Time Status Last Admin Dose Admin Vancomycin HCl 0 ml @ 0 mls/hr UD IV 06/26/24 01:00 UNV Insulin Glargine 15 units BID@0700,2200 SC 06/26/24 07:00 07/07/24 06:21 15 UNITS Ondansetron HCl 4 mg Q4HP PRN IV 06/26/24 06:00 Docusate Sodium 100 mg BIDPRN PRN PO 06/26/24 06:00 Enoxaparin Sodium 40 mg DAILY SC 06/26/24 10:00 07/07/24 10:20 40 MG Zinc Sulfate 220 mg DAILY PO 06/26/24 10:00 07/07/24 10:20 220 MG Ascorbic Acid 500 mg BID PO 06/26/24 10:00 07/07/24 10:19 500 MG Acetaminophen 650 mg Q6HP PRN PO 06/26/24 06:00 07/04/24 08:53 650 MG Nitroglycerin 0.4 mg Q5MINP PRN SL 06/26/24 06:00 Guaifenesin/ Dextromethorphan 10 ml Q6HP PRN PO 06/28/24 14:15 06/28/24 21:23 10 ML Vancomycin HCl 250 ml @ 200 mls/hr Q10H IV 07/05/24 08:00 07/07/24 10:20 200 MLS/HR Diagnostic Test (Pha) 1 strip ACHS 07/05/24 17:00 07/07/24 06:13 1 STRIP Insulin Human Regular ACHS SC 07/05/24 17:00 07/07/24 06:20 3 UNITS Dextrose 50 ml UD PRN IV 07/05/24 12:30 Levofloxacin/ Dextrose 100 ml @ 100 mls/hr DAILY IV 07/07/24 10:00 Laboratory Results Laboratory Tests 07/05/24 06:05 07/07/24 06:50 Microbiology Microbiology Date/Time Source Procedure Growth Status 06/29/24 12:49 Foot Left Gram Stain - Final Complete 06/29/24 12:49 Anaerobic Culture - Final Finegoldia magna Complete 06/29/24 12:49 Aerobic Culture - Final Staphylococcus intermedius Complete 06/26/24 07:08 Blood Blood Culture - Final NO GROWTH AFTER 5 DAYS OF INCUBATION. Complete Labs and/or images reviewed: Labs reviewed by me Assessment/Plan Assessment/Plan Cellulitis of left foot complicated with abscess with drainage Hyponatremia Diabetic foot infection Hyperglycemia due to diabetes mellitus Continue IV abx vancomycin Continuing with IV pain medication PICC line change. Continuing with [place] for pain control Continuing wound care The patient was supposed to be discharged yesterday, however arrangement for home health and IV antibiotic was not done. Today insurance arrange for home health and IV antibiotic and patient will be discharged home today. Plan discussed with: Patient My Orders Orders - MARTHA HERNANDEZ MD Procedure Category Date Status Time * Crystalizer CONS 07/06/24 Transmitted Consult Discharge DISCHARGE 07/06/24 Transmitted 11:23 Levofloxacin 500mg PHA 07/07/24 In Process (Levaquin 500mg/ 100m 10:00 Date of Service: Jul 07, 2024 Billing Provider: MARTHA HERNANDEZ MD Common Visit Codes: [id number] INP/OBS CARE(HIGH) MARTHA HERNANDEZ MD Jul 07, 2024 10:31
[2024-07-07] MEDS ORDERED: BACDST PO (10:32)
[2024-07-07 13:00] VITALS: BP 147/86; PULSE 72; RESP 18; TEMP 97.8; O2SAT 99
[2024-07-07 17:00] VITALS: BP 142/86; PULSE 76; RESP 17; TEMP 97.9; O2SAT 99
[2024-07-07] MEDS ORDERED: LIDOCAINE 1% (LOCAL ANESTH.) PF 5ml SDV ID ONE (17:00)
[2024-07-07] MEDS ORDERED: SODIUM CHLOR 0.9% PF (SALINE LOCK) 10ML VIAL/SYR IV SCH (22:00)
== END 2024-07-07 18:06 | disposition home health service (06) | DRG 344 ==
LOC: ER 00:26 → TELE 05:53 → EAST 22:45 → TELE-E-ADS 06-27 00:55 → EAST 06-28 12:54
PROVIDERS: ADMIT Internal Medicine; ATTEND Internal Medicine
PROC: 0Y9N0ZZ Drainage of Left Foot, Open Approach (ICD-10-PCS; 2024-06-29)
PROC: 0QBP0ZX Excision of Left Metatarsal, Open Approach, Diagnostic (ICD-10-PCS; 2024-06-29)
PROC: 05HD33Z Insertion of Infusion Device into Right Cephalic Vein, Percutaneous Approach (ICD-10-PCS; 2024-06-30)
PROC: B54MZZA Ultrasonography of Right Upper Extremity Veins, Guidance (ICD-10-PCS; 2024-06-30)
PROC: 0Y9N0ZZ Drainage of Left Foot, Open Approach (ICD-10-PCS; principal; 2024-07-01 11:03)
PROC: 02HV33Z Insertion of Infusion Device into Superior Vena Cava, Percutaneous Approach (ICD-10-PCS; 2024-07-07)
PROC: B548ZZA Ultrasonography of Superior Vena Cava, Guidance (ICD-10-PCS; 2024-07-07)
DX: E11.69 Type 2 diabetes mellitus with other specified complication (principal); M86.8X7 Other osteomyelitis, ankle and foot; E11.621 Type 2 diabetes mellitus with foot ulcer; L03.116 Cellulitis of left lower limb; L02.612 Cutaneous abscess of left foot; L97.528 Non-pressure chronic ulcer of other part of left foot with other specified severity; E11.65 Type 2 diabetes mellitus with hyperglycemia; S16.1XXA Strain of muscle, fascia and tendon at neck level, initial encounter; E66.01 Morbid (severe) obesity due to excess calories; Z68.39 Body mass index [BMI] 39.0-39.9, adult; Z88.0 Allergy status to penicillin; Z79.4 Long term (current) use of insulin; Z79.899 Other long term (current) drug therapy; X58.XXXA Exposure to other specified factors, initial encounter; Y93.89 Activity, other specified; Y92.89 Other specified places as the place of occurrence of the external cause; Y99.8 Other external cause status
CPT/HCPCS: 36415; 36569; 73700; 73718; 76937; 80048; 80053; 80202; 82565; 82962; 83605; 84702; 85025; 85610; 85730; 86850; 86900; 86901; 87040; 87070; 87075; 87076; 87077; 87186; 87205; G0378; J0131; J1815; J2405; J2704; J3490

== ENCOUNTER 2025-05-03 17:36 | Emergency (ER) | payer MEDICAID ==
[~2025-05-03] VITALS: Ht 167.6 cm; Wt 125.5 kg
[~2025-05-03 17:36] MED LIST changes: +BACDST PO; -DOX100T PO; -METF-372; +METF-372 PO; -PAROXETINE
[2025-05-03] MEDS ORDERED: APIX5TAB4 PO (18:54)
--- NOTE | 2025-05-03 19:00 | ED.PDOC ---
History of Present Illness HPI Comments 45 y/o F, with PMHx of DM and asthma presents to the ED for CC of abnormal labs. Patient states, she was relayed to the ED for a further evaluation following an U.S of her right arm which showed an "occlusive thrombus within the right cephalic vein, a superficial vein within the right arm". Patient denies sh ortness of breath, chest pain, palpitations, swelling, or discoloration of her right extremity. Chief Complaint: Abnormal LAB's Time Seen by MD: 18:50 Primary Care Provider: PALOMO Reviewed Notes: Nurses Notes, Medications, Allergies Allergies: Coded Allergies: Penicillins (Verified Allergy, 08/14/09) Uncoded Allergies: PEDIASOL (Allergy, 08/14/09) Home Meds Active Scripts Apixaban Base (Eliquis Starter Pack) 5 Mg Tab, 5 MG PO BID for 30 Days, #60 TAB Prov:NASRIN HANKINS MD 05/03/25 Apixaban Base (Eliquis Starter Pack) 5 Mg Tab, 10 MG PO BID for 10 Days, #40 TAB Prov:NASRIN HANKINS MD 05/03/25 Sulfamethoxazole W/Trimethopri (Bactrim Ds Tablet) 1 Tab Tb, 1 TAB PO BID, #60 TAB Prov:MARTHA HERNANDEZ MD 07/07/24 Metformin Hydrochloride (Metformin Hcl) 1,000 Mg Tab, 1 TAB PO BID, #60 TAB 5 Refills Prov:MARTHA HERNANDEZ MD 07/06/24 Methocarbamol (Methocarbamol) 750 Mg Tab, 750 MG PO BID, #20 TAB Prov:ARIELLA ALEMAN 01/03/24 Ibuprofen (Ibuprofen) 800 Mg Tab, 1 TAB PO TID, #30 TAB Prov:ARIELLA ALEMAN 01/03/24 Information Source: Patient Mode of Arrival: Ambulatory Severity: Moderate Timing: Hours Duration: Since onset Prehospital treatment: None Past Medical History PAST MEDICAL HISTORY: DM Surgical History: Denies all surgeries ARTIFICIAL CHERRY MAKER History: No Pertinent ARTIFICIAL CHERRY MAKER History Family History Family History: No family hx of DM, No family hx of HTN Social History Smoker: Non-Smoker Alcohol: Denies ETOH Use Drugs: Denies Drug Use Lives In: Home Constitutional: denies: chills, diaphoresis, fatigue, fever, malaise, sweats, weakness, others EENTM: denies: blurred vision, double vision, ear bleeding, ear discharge, ear drainage, ear pain, ear ringing, eye pain, eye redness, hearing loss, mouth pain, mouth swelling, nasal discharge, nose bleeding, nose congestion, nose pain, photophobia, tearing, throat pain, throat swelling, voice changes, others Respiratory: denies: cough, hemoptysis, orthopnea, SOB at rest, shortness of breath, SOB with excertion, stridor, wheezing, others Cardiovascular: denies: chest pain, dizzy spells, diaphoresis, Dyspnea on exertion, edema, irregular heart beat, left arm pain, lightheadedness, palpitations, PND, syncope, others Gastrointestinal: denies: abdomen distended, abdominal pain, blood streaked bowels, constipated, diarrhea, dysphagia, difficulty swallowing, hematemesis, melena, nausea, poor appetite, poor fluid intake, rectal bleeding, rectal pain, vomiting, others Genitourinary: denies: abnormal vagina bleeding, burning, dyspareunia, dysuria, flank pain, frequency, hematuria, incontinence, pain, , vagina disc harge, urgency, others Neurological: denies: dizziness, fainting, headache, left sided numbness, left sided weakness, numbness, paresthesia, pre-existing deficit, right sided numbness, right sided weakness, seizure, speech problems, tingling, tremors, weakness, others Musculoskeletal: reports: others (right arm pain); denies: back pain, gout, joint pain, joint swelling, muscle pain, muscle stiffness, neck pain Integumetry: denies: bruises, change in color, change in hair/nails, dryness, laceration, lesions, lumps, rash, wounds, others Allergic/Immunocompromised: denies: Difficulty Healing, Frequent Infections, Hives, Itching, others Hematologic/Lymphatic: denies: anemia, blood clots, easy bleeding, easy bruising, swollen glands, others Endocrine: denies: excessive hunger, excessive sweating, excessive thirst, excessive urination, flushing, intolerance to cold, intolerance to heat, unexplained weight gain, unexplained weight loss, others Psychiatric: denies: anxiety, bipolar disorder, depression, hopeless, panic disorder, schizophrenia, sleepless, suicidal, others All Other Systems: Reviewed and Negative Physical Exam General Appearance: No Apparent Distress HEENT: Normal ENT Inspection, Pharynx Normal, TMs Normal Neck: Full Range of Motion, Non-Tender, Normal, Normal Inspection Respiratory: Chest Non-Tender, Lungs Clear, No Accessory Muscle Use, No Respiratory Distress, Normal Breath Sounds Cardiovascular: No Edema, No JVD, No Murmur, No Gallop, Normal Peripheral Pulses, Regular Rate/Rhythm Breast Exam: Deferred Gastrointestinal: No Organomegaly, Non Tender, No Pulsatile Mass, Normal Bowel Sounds, Soft Genitalia: Deferred Pelvic: Deferred Rectal: Deferred Extremities: No calf tenderness, Normal capillary refill, No pedal edema, Tender (Mild tenderness to the inner aspect of the right upper arm) Musculoskeletal : Apperance: Normal Neurologic: Alert, oceanographic meteorologist II-XII nml as Tested, No Motor Deficits, Normal Affect, Normal Mood, No Sensory Deficits Cerebellar Function: Normal Reflexes: Normal Skin: Dry, Normal Color, Warm Lymphatic: No Adenopathy Was a procedure done? Was a procedure done?: No Differential Dx Considerations may include: occlusive thrombus X-Ray, Labs, Meds, VS Vital Signs Date Time Temp Pulse Resp B/P (MAP) Pulse Ox O2 Delivery O2 Flow Rate FiO2 05/03/25 17:38 98.2 82 16 163/90 97 98.2 The patient is being discharged on an Eliquis pack. The patient will return to the emergency department's the condition worsens Time of 1ST Reevaluation: 19:20 Reevaluation 1ST: Unchanged Patient Education/Counseling: Diagnosis, Treatment, Prognosis, Need For Follow Up Family Education/Counseling: No Family Present SEPSIS Sepsis Screen Date sepsis recognized/suspect: May 03, 2025 Time Sepsis recognized/suspect: 1741 Recent Procedure: No On Antibiotic Therapy: No Respiratory Rate >20: No Heart Rate >90: No Temp<36 C (96.8 F) or >38.3 C: No SBP <90 or MAP <65 mmHG: No New Acute Mental Status Change: No Is the patient on CPAP, BIPAP,: No Vital Signs Date Time Temp Pulse Resp B/P (MAP) Pulse Ox O2 Delivery O2 Flow Rate FiO2 05/03/25 17:38 98.2 82 16 163/90 97 98.2 Departure 1 Departure Time of Disposition: 19:08 Impression: Primary Impression: DVT of right axillary vein, acute Disposition: 01 HOME / SELF CARE / HOMELESS Condition: Fair e-Prescriptions Apixaban Base (Eliquis Starter Pack) 5 Mg Tab 5 MG PO BID for 30 Days, #60 TAB Prov: NASRIN HANKINS MD 05/03/25 Apixaban Base (Eliquis Starter Pack) 5 Mg Tab 10 MG PO BID for 10 Days, #40 TAB Prov: NASRIN HANKINS MD 05/03/25 Discharged With: Self Critical Care Note Critical Care Time?: No Stability Stability form required: No Heart Score Heart Score: Heart Score Response (Comments) Value History N/A 0 EKG N/A 0 Age N/A 0 Risk Factors N/A 0 Troponin N/A 0 Total 0 I personally scribed for NASRIN HANKINS MD ([email or web address]) on 05/03/25 at 18:59. Electronically submitted by Mis Ribeiro ([email or web address]). NASRIN HANKINS MD May 03, 2025 18:59
[2025-05-03 19:32] VITALS: BP 123/66; PULSE 90; RESP 16; TEMP 98.6; O2SAT 96
== END 2025-05-03 19:37 | disposition home or self-care (01) ==
LOC: ER 17:36
DX: I82.A11 Acute embolism and thrombosis of right axillary vein (principal); E11.9 Type 2 diabetes mellitus without complications; J45.909 Unspecified asthma, uncomplicated; Z79.899 Other long term (current) drug therapy; Z88.0 Allergy status to penicillin; Z79.84 Long term (current) use of oral hypoglycemic drugs; Z79.1 Long term (current) use of non-steroidal anti-inflammatories (NSAID); Z79.01 Long term (current) use of anticoagulants